=== PATIENT | female | born 1970 | race Caucasian/White ===

== ENCOUNTER 2019-06-16 16:56 | Emergency (ER) | payer BC, SELFPAY ==
[2019-06-16 17:07] VITALS: BP 146/99; PULSE 109; RESP 18; TEMP 36.8; O2SAT 98; BMI 20.7
--- NOTE | 2019-06-16 17:29 | XR_ITS ---
WS: [id number] PORTABLE CHEST HISTORY: Shortness of breath COMPARISON: 01/07/2018 Moderate pulmonary hyperinflation. No pneumonia. Normal vasculature. No pleural effusion or pneumotho rax. Cardiac size: Normal. Mediastinum/Aorta: Normal mediastinum. No osseous abnormality seen. XR/XR chest 1V portable [id number] IMPRESSION: Mild chronic emphysema. No acute cardiopulmonary disease.
--- NOTE | 2019-06-16 17:30 | ECG_ITS ---
Measurements Intervals [place] Rate: 104 P: 73 WY: 124 QRS: 85 QRSD: 81 T: 62 QT: 330 QTc: [address] DEPRESSION [0.05+ mV ST DEPRESSION] Compared to ECG 01/07/2018 16:22:37 ST (T wave) deviation now present Sinus rhythm no longer present Electronically Signed On 06-16-2019 19:29:01 YARN WEIGHER by Sabrina Savage M.D. [id number]
[2019-06-16 18:07] LABS: Troponin(5th) Baseline 6 ng/mL (0-10)
--- NOTE | 2019-06-16 19:30 | ECG_ITS ---
Measurements Intervals [place] Rate: 96 P: 73 WY: 124 QRS: 81 QRSD: 81 T: 64 QT: 336 QTc: 425 SINUS RHYTHM MINIMAL VOLTAGE CRITERIA FOR LVH, CONSIDER NORMAL VARIANT [MEETS CRITERIA IN ONE OF: R(aVL), S(V1), R(V5), R(V5/V6)+S(V1)] Compared to ECG 06/16/2019 17:19:57 Sinus tachycardia no longer present ST (T wave) deviation no longer present Electronically Signed On 06-17-2019 13:42:28 CABLE MAKER by Anabelle Barboza M.D. [id number]
[2019-06-16 19:54] LABS: Troponin 5 2HR Delta 0 ABS# (0-10)
--- NOTE | 2019-06-16 21:11 | ED_ITS ---
Entered by Annmarie Macias, acting as scribe for Nannette Wiley MD Jun 16, 2019 16:56 HPI - Chest Pain General: Chief Complaint: Chest Pain Stated Complaint: Chest Pains Time Seen by Provider: 06/16/19 21:11 Source: patient Mode of arrival: ambulatory Limitations: no limitations History of Present Illness: HPI narrative: 49 yo f came to the er for chest pain. Onset was today. Pt states that she does not fel good, she is dizzy, chest pain and has a cold since April of last year. Pt states that when she breaths in her chest and her abd hurt. complaint: chest pain Onset (ago): month(s) (today) Timing of current episode: constant and still present Prior episodes: No Onset: during rest Pain radiation: none Severity: mild Quality: aching Relieving factors: nothing Exacerbating factors: nothing Associated symptoms: Reports abdominal pain; Deny dyspnea, fever(s) or vomiting Review of Systems Const: Denies: fever or chills Eyes: Denies: change in vision ENMT: Reports: nasal discharge and nasal congestion Card: Reports: chest pain Resp: Reports: non-productive cough; Denies: shortness of breath GI: Reports: abdominal pain; Denies: vomiting : Denies: difficulty urinating Musc: Denies: back pain or joint pain Skin/Breast: Denies: rash Neuro: Reports: dizziness; Denies: headache Psych: Denies: depression Endo: Denies: excessive urination Akil/Lymph: Denies: easy bruising All/Imm: Denies: hives PFSH ED PFSH: Statuses (acute, chronic, etc) shown below reflect problem list status as previously entered and may not be historically accurate Social History Smoking and tobacco status: current every day smoker Physical Exam Const: COMMON NORMALS: no apparent distress and healthy appearing HENMT: COMMON NORMALS: normocephalic and external nose normal HEAD & SCALP: normocephalic NOSE: external nose normal and no nasal discharge (nasal dischage) Eye: COMMON NORMALS: PERRL PUPIL: Yes PERRL Neck/C-Spine: COMMON NORMALS: full ROM and no lymphadenopathy Chest: COMMONS NORMALS: inspection of chest normal Resp: COMMON NORMALS: normal respiratory effort and clear to auscultation bilaterally AUSCULTATION: clear to auscultation bilaterally Cardio: COMMON NORMALS: regular rate and regular rhythm RATE: regular rate RHYTHM: regular rhythm GI: COMMON NORMALS: soft to palpation PALPATION: Yes soft Extremity: COMMON NORMALS: normal to inspection, full ROM and normal capillary refill Psych: COMMON NORMALS: mental status grossly normal and cooperative Skin: COMMON NORMALS: no rashes or lesions noted GENERAL SKIN EXAM: no rashes or lesions noted Course Vital Signs: Vital signs: Vital Signs Temperature 98.2 F 06/16/19 17:07 Pulse Rate 76 06/16/19 23:12 Respiratory Rate 16 06/16/19 23:12 Blood Pressure 103/79 06/16/19 23:12 Pulse Oximetry 97 06/16/19 23:12 MDM - Chest Pain MDM Narrative: Medical decision making narrative: Patient presents here with chest pain that is atypical in nature. She has had a cough and congestion and pain sounds to be pleuritic in nature. D-dimer was negative and no signs of pulmonary embolism. Patient has no signs of cardiac cause. Patient given Decadron and antibiotics for her upper respiratory infection. She is stable for discharge and is to follow-up with her primary care doctor in 3 to 5 days and return if worsening. Lab Data: Labs: Lab Results 06/16/19 06/16/19 06/16/19 Range/Units 17:35 17:35 17:35 WBC 10.6 H (4.0-10.0) 10^3/ uL RBC 4.42 (4.1-5.3) 10^6/u L Hgb 13.3 (11.5-15.3) g/dL Hct 40.5 (37.0-47.0) % MCV 91.6 (81-99) fL MCH 30.1 (28.0-34.0) pg MCHC 32.8 (30.0-36.0) g/dL RDW 12.9 (12.1-15.1) % Plt Count 303 (130-400) 10^3/c mm MPV 9.9 (7.4-10.4) fL Neut % (Auto) 77.5 % Lymph % (Auto) 13.3 % Dillon % (Auto) 8.3 % Eos % (Auto) 0.2 % Baso % (Auto) 0.3 % Neut # (Auto) 8.2 H (1.8-7.7) 10^3/u L Lymph # (Auto) 1.4 (0.8-4.8) 10^3/u L Dillon # (Auto) 0.9 (0.2-0.9) 10^3/u L Eos # (Auto) 0.0 (0.0-0.8) 10^3/u L Baso # (Auto) 0.0 (0.0-0.1) 10^3/u L Nucleated RBC % (a uto) 0 % Nucleated RBCs # 0.0 /100WBC D-Dimer 0.47 (0-0.59) ug/mIFE U Troponin T Baselin e 6 (0-10) ng/mL Troponin T 120 Min sergio (0-10) ng/mL Delta Troponin T (0-10) ABS# 06/16/19 Range/Units 19:12 WBC (4.0-10.0) 10^3/ uL RBC (4.1-5.3) 10^6/u L Hgb (11.5-15.3) g/dL Hct (37.0-47.0) % MCV (81-99) fL MCH (28.0-34.0) pg MCHC (30.0-36.0) g/dL RDW (12.1-15.1) % Plt Count (130-400) 10^3/c mm MPV (7.4-10.4) fL Neut % (Auto) % Lymph % (Auto) % Dillon % (Auto) % Eos % (Auto) % Baso % (Auto) % Neut # (Auto) (1.8-7.7) 10^3/u L Lymph # (Auto) (0.8-4.8) 10^3/u L Dillon # (Auto) (0.2-0.9) 10^3/u L Eos # (Auto) (0.0-0.8) 10^3/u L Baso # (Auto) (0.0-0.1) 10^3/u L Nucleated RBC % (a uto) % Nucleated RBCs # /100WBC D-Dimer (0-0.59) ug/mIFE U Troponin T Baselin e (0-10) ng/mL Troponin T 120 Min sergio 6.00 (0-10) ng/mL Delta Troponin T 0 (0-10) ABS# Imaging Data^: CXR: Attestation: I personally reviewed and interpreted this imaging study as follows: My impression: no acute abnormality EKG Data^: EKG 1: Attestation: I personally reviewed and interpreted this EKG as follows: EKG interpretation date: 06/16/19 EKG interpretation time: 17:19 Interpretation: sinus tach hr [address] or t wave abnormaliies qrs 81 qtc 390 EKG 2: Attestation: I personally reviewed and interpreted this EKG as follows: EKG interpretation date: 06/16/19 EKG interpretation time: 19:13 Interpretation: nsr hr [address] or t wave abnormalities qrs 81 [id number] Discharge Plan Discharge Patient Disposition: Home, Self-Care Clinical Impression: Atypical chest pain, Acute upper respiratory infection Condition: Stable Prescriptions: New Keflex 500 mg capsule 500 mg PO Q6H 7 Days Qty: 28 RF: 0 EC-Naprosyn 500 mg tablet,delayed release (DR/EC) 500 mg PO BID PRN (Reason: pain) Qty: 20 RF: 0 Discharge Orders: Discharge Order (Routine); Ordered 06/16/19 Ordered By: Nannette Wiley Referrals: Lisy Prado MD [Primary Care Provider] - Discharge Diet: Advance as tolerated Discharge Activity: Resume usual activity Patient Instructions: Chest Pain (ED), Upper Respiratory Infection (ED) Discharge Date/Time: 06/16/19 23:12 Coding Level of Care Code ED Corporate Concierge for Chg Fwd Exam Problem Focused The documentation recorded by the Gilberto diallo Stephanie Lyn, accurately reflects the service I personally performed and the decisions made by Inez lynch Korby, MD Jun 16, 2019 16:56
[2019-06-16 21:22] LABS: Basophils % 0.3 %; Eosinophils % 0.2 %; Hematocrit 40.5 % (37.0-47.0); Hemoglobin 13.3 g/dL (11.5-15.3); Lymphocytes # 1.4 10^3/uL (0.8-4.8); Lymphocytes % 13.3 %; Mean Corpuscular HGB Conc 32.8 g/dL (30.0-36.0); Mean Corpuscular Hemoglobin 30.1 pg (28.0-34.0); Mean Corpuscular Volume 91.6 fL (81-99); Mean Platelet Volume 9.9 fL (7.4-10.4); Monocytes # 0.9 10^3/uL (0.2-0.9); Monocytes % 8.3 %; Neutrophils # 8.2 10^3/uL (1.8-7.7); Neutrophils % 77.5 %; Nucleated Red Blood Cells % 0 %; Platelet Count 303 10^3/cmm (130-400); Red Blood Count 4.42 10^6/uL (4.1-5.3); Red Cell Distribution Width 12.9 % (12.1-15.1); White Blood Count 10.6 10^3/uL (4.0-10.0)
[2019-06-16 21:33] LABS: D Dimer 0.47 ug/mIFEU (0-0.59)
[2019-06-16] MEDS: ketorolac 30 mg/mL INJ IVP (22:01)
[2019-06-16] MEDS: dexamethasone 10 mg/mL INJ IVP (23:05)
[2019-06-16 23:12] VITALS: BP 103/79; PULSE 76; RESP 16; O2SAT 97
[2019-06-16 23:14] LABS: Anion Gap 19.2 (5-19); Blood Urea Nitrogen 8 mg/dL (6-20); Calcium 9.8 mg/Dl (8.6-10.0); Carbon Dioxide 20 mmol/L (22-29); Chloride 102 mmol/L (98-107); Glomerular Filtration Rate 107.2 mL/min (90-130); Glucose 110 mg/dL (74-109); Potassium 4.2 mmol/L (3.5-5.1); Sodium 137 mmol/L (136-145)
== END 2019-06-16 23:12 | disposition home or self-care (01) ==
PROVIDERS: Family Medicine; Emergency Provider Emergency Medicine; Family Provider Family Medicine; PCP Family Medicine
DX: R07.9 Chest pain, unspecified (principal); R07.89 Other chest pain; J06.9 Acute upper respiratory infection, unspecified; F17.210 Nicotine dependence, cigarettes, uncomplicated
CPT/HCPCS: 36415; 71045; 80048; 84484; 85025; 85378; 93005; 96374; 96375; 99281; J1100; J1885

== ENCOUNTER 2019-07-11 08:58 | Emergency (ER) | payer BC, SELFPAY ==
[2019-07-11 09:11] VITALS: BP 143/92; PULSE 97; RESP 20; TEMP 36.9; O2SAT 100; BMI 21.6
--- NOTE | 2019-07-11 09:37 | ED_ITS ---
Entered by Trish Howard, acting as scribe for Louis Sandhu DO HPI - Fever General: Chief Complaint: Fever Stated Complaint: Sob,fever Time Seen by Provider: 07/11/19 09:37 Source: patient Mode of arrival: ambulatory Limitations: no limitations History of Present Illness: HPI Narrative: 49 yo female presents with flu like symptoms. Pt states that she has felt like this for about 4 days. Pt states that she has been sleeping more. Pt states that she has been dealing with an upper respiratory infection off and on since . Pt states that she has taken a few rounds of antibiotics. Pt states that she has had nose bleeds. Pt states that she has some burning and painful urination. MD elicited complaint: fever and malaise Onset (ago): day(s) (4 ) Exacerbating factors: nothing Relieving factors: nothing Associated symptoms: Reports abdominal pain (lower ), cough and dysuria; Deny chills, chest pain, confusion, extremity pain, headache(s), nasal congesti on or night sweats Treatments prior to arrival fever: none Review of Systems Const: Reports: fever and malaise; Denies: chills, body aches, fatigue or night sweats Eyes: Denies: change in vision or blurry vision ENMT: Denies: throat pain, oral sores/lesions, dental pain, nasal discharge or nasal congestion Card: Denies: chest pain, palpitations, irregular heart rhythm, edema, syncope, shortness of breath on exertion, shortness of breath when lying down or leg pain with exertion Resp: Reports: shortness of breath, non-productive cough and wheezing; Denies: productive cough GI: Reports: abdominal pain (lower ) : Reports: painful urination; Denies: urinary frequency or urinary urgency Musc: Denies: neck pain, back pain, extremity pain, extremity swelling, joint pain or joint swelling Skin/Breast: Denies: rash, itching or redness Neuro: Denies: headache, numbness in extremities, weakness in extremities, changes in sensation, lack of coordination, difficulty walking, frequent falls, dizziness, vertigo or confusion Psych: Denies: anxiety, depression, loss of interest, visual hallucinations, auditory hallucinations, suicidal ideation or homicidal ideation Endo: Denies: excessive urination, excessive thirst, tired all the time or cold intolerance Akil/Lymph: Denies: easy bruising, easy bleeding, petechiae, enlarged lymph nodes or tender lymph nodes PFSH ED PFSH: Statuses (acute, chronic, etc) shown below reflect problem list status as previously entered and may not be historically accurate Surgical History History of (Acute) Social History Smoking and tobacco status: heavy tobacco smoker Physical Exam Const: COMMON NORMALS: average body habitus, oriented x3 and alert GENERAL APPEARANCE: cooperative, comfortable, well kempt and well developed NUTRITIONAL APPEARANCE: not obese ORIENTATION/CONSCIOUSNESS: Yes awake, Yes oriented to person and Yes oriented to place HENMT: COMMON NORMALS: normocephalic, head/scalp atraumatic, EAC's normal, TM's normal bilaterally, external nose normal, moist oral mucous membranes and oropharynx normal HEAD & SCALP: normocephalic and atraumatic NOSE: external nose normal EXTERNAL AUDITORY CANAL: EAC's normal TYMPANIC MEMBRA NE: TM's normal bilaterally MOUTH: oral and palatal mucosa normal, lip normal and tongue normal THROAT: posterior oropharynx normal and tonsils normal Eye: COMMON NORMALS: PERRL, EOMs intact bilaterally, conjunctivae normal and no scleral icterus CONJUNCTIVA: Yes conjunctivae normal PUPIL: Yes PERRL Neck/C-Spine: COMMON NORMALS: full ROM, no lymphadenopathy, supple, no meningeal signs and thyroid normal THYROID: thyroid normal and asymmetrical Lymph: LYMPHATIC: no lymphadenopathy noted Resp: COMMON NORMALS: normal respiratory effort, no retractions, no use of accessory muscles and clear to auscultation bilaterally AUSCULTATION: clear to auscultation bilaterally Cardio: COMMON NORMALS: regular rate and regular rhythm RATE: regular rate RHYTHM: regular rhythm HEART SOUNDS: no murmurs GI: COMMON NORMALS: normal to inspection, nondistended, normoactive bowel sounds, soft to palpation and no hepatosplenomegaly PALPATION: Yes soft and Yes no hepatosplenomegaly : COMMON NORMALS: Yes no CVA tenderness BLADDER/KIDNEY EXAM: Yes no CVA tenderness Back/Pelvis: COMMON NORMALS: no CVA tenderness LUMBAR SPINE/LOWER BACK: Yes normal to inspection Extremity: COMMON NORMALS: no clubbing, cyanosis or edema, no calf tenderness and no pedal edema Neuro: COMMON NORMALS: oriented x3 SENSORIUM/ORIENTATION: Yes alert, Yes oriented to person and Yes oriented to place MENINGEAL SIGNS: Yes no meningeal signs Psych: APPEARANCE: Yes well kempt Skin: COMMON NORMALS: no rashes or lesions noted and skin turgor normal GENERAL SKIN EXAM: no rashes or lesions noted and turgor normal Course ED course: Patient had complained of some dysuria we are waiting on a urine. Her and who is not initially here arrived and evidently had become angry. I had come in and talk to the patient advised her it looks like she probably had evidence of COPD we are going to give her some medications for management of that and get her set up with a sixth grade teacher for further testing that could not be done here in the emergency room. After I left the room the patient's became belligerent was swearing at the staff and demanded to leave immediately. When I went back to the room to talk to them he was quite angry and took an aggressive posture in the room towards me. Security was called this made him more angry. Patient remained calm throughout. The then left the emergency room swearing loudly at me as he walked down the hallway. Offered the patient to wait until we get the urine sample back so she will have a bladder infection we could treat that. Patient's stated they had already seen Dr. Douglas and was told it was not COPD. She had not told me that initially but she had seen Dr. Pino previously. When we called Dr. Douglas's office they could not find record that she had ever been seen. Patient left AMA from the emergency room. I tried to discourage her to that we could do further testing to further evaluate her condition. We will have the director case still try to get into Dr. Douglas solely she will have the option of seeing him for further evaluation for this problem that she has had for several months now. Vital Signs: Vital signs: Vital Signs Temperature 98.4 F 07/11/19 09:11 Pulse Rate 97 07/11/19 09:11 Respiratory Rate 18 07/11/19 09:41 Blood Pressure 143/92 07/11/19 09:11 Pulse Oximetry 100 07/11/19 09:41 MDM - Fever Lab Data: Labs: Lab Results 07/11/19 07/11/19 07/11/19 Range/Units 09:15 09:45 09:51 WBC 6.5 (4.0-10.0) 10^3/ uL RBC 4.32 (4.1-5.3) 10^6/u L Hgb 13.2 (11.5-15.3) g/dL Hct 40.1 (37.0-47.0) % MCV 92.8 (81-99) fL MCH 30.6 (28.0-34.0) pg MCHC 32.9 (30.0-36.0) g/dL RDW 13.6 (12.1-15.1) % Plt Count 291 (130-400) 10^3/c mm MPV 9.3 (7.4-10.4) fL Neut % (Auto) 69.0 % Lymph % (Auto) 22.1 % Ashe % (Auto) 6.3 % Eos % (Auto) 1.7 % Baso % (Auto) 0.6 % Neut # (Auto) 4.5 (1.8-7.7) 10^3/u L Lymph # (Auto) 1.4 (0.8-4.8) 10^3/u L Ashe # (Auto) 0.4 (0.2-0.9) 10^3/u L Eos # (Auto) 0.1 (0.0-0.8) 10^3/u L Baso # (Auto) 0.0 (0.0-0.1) 10^3/u L Nucleated RBC % (a uto) 0 % Nucleated RBCs # 0.0 /100WBC Specimen Type Arterial Sample Site Radial, right ABG pH 7.41 (7.35-7.45) ABG pCO2 37.3 (35-45) mmHg ABG pO2 96.3 (80.0-100.0) mmH g ABG HCO3 23.8 (22-26) mmol/L ABG O2 Saturation 98.4 ABG Base Excess -0.5 (-2.0-2.0) mmol/ L Eben Test Pos A-a O2 Gradient 5.2 (5-10) mmHg Hematocrit 40.6 (37-47) % Hgb O2 Saturation 93.3 L (95-100) % Carboxyhemoglobin 4.5 (0.4-20.1) %THgb Methemoglobin 0.7 (0.4-1.5) % Total Hemoglobin 13.2 (12-16) g/dL Sodium 139.0 (131-143) mmol/L Potassium 3.9 (3.5-5.0) mmol/L Glucose 110.0 (70-115) mg/dL Ionized Calcium 1.2 (1.1-1.4) mmol/L O2 Delivery Device Room air FiO2 21.0 % Portfolio Mgr ID ed Chloride (98-107) mmol/L Carbon Dioxide (22-29) mmol/L Anion Gap (5-19) BUN (6-20) mg/dL Creatinine (0.5-0.9) mg/dL GFR Calculation (90-130) mL/min Calcium (8.5-10.5) mg/dL Total Bilirubin (0.15-1.2) mg/dL AST (0-32) U/L ALT (0-33) U/L Alkaline Phosphata se (35-105) IU/L Total Protein (6.6-8.7) g/dL Albumin (3.5-5.2) g/dL Globulin (1.3-4.6) g/dL Influenza Type A A g Negative (Negative) POC Influenza B Ag Negative (Negative) 07/11/19 Range/Units 09:51 WBC (4.0-10.0) 10^3/ uL RBC (4.1-5.3) 10^6/u L Hgb (11.5-15.3) g/dL Hct (37.0-47.0) % MCV (81-99) fL MCH (28.0-34.0) pg MCHC (30.0-36.0) g/dL RDW (12.1-15.1) % Plt Count (130-400) 10^3/c mm MPV (7.4-10.4) fL Neut % (Auto) % Lymph % (Auto) % Ashe % (Auto) % Eos % (Auto) % Baso % (Auto) % Neut # (Auto) (1.8-7.7) 10^3/u L Lymph # (Auto) (0.8-4.8) 10^3/u L Ashe # (Auto) (0.2-0.9) 10^3/u L Eos # (Auto) (0.0-0.8) 10^3/u L Baso # (Auto) (0.0-0.1) 10^3/u L Nucleated RBC % (a uto) % Nucleated RBCs # /100WBC Specimen Type Sample Site ABG pH (7.35-7.45) ABG pCO2 (35-45) mmHg ABG pO2 (80.0-100.0) mmH g ABG HCO3 (22-26) mmol/L ABG O2 Saturation ABG Base Excess (-2.0-2.0) mmol/ L Eben Test A-a O2 Gradient (5-10) mmHg Hematocrit (37-47) % Hgb O2 Saturation (95-100) % Carboxyhemoglobin (0.4-20.1) %THgb Methemoglobin (0.4-1.5) % Total Hemoglobin (12-16) g/dL Sodium 135 L (131-143) mmol/L Potassium 3.9 (3.5-5.0) mmol/L Glucose 109 (70-115) mg/dL Ionized Calcium (1.1-1.4) mmol/L O2 Delivery Device FiO2 % Portfolio Mgr ID Chloride 101 (98-107) mmol/L Carbon Dioxide 23 (22-29) mmol/L Anion Gap 14.9 (5-19) BUN 8 (6-20) mg/dL Creatinine 0.5 (0.5-0.9) mg/dL GFR Calculation 132.2 H (90-130) mL/min Calcium 9.0 (8.5-10.5) mg/dL Total Bilirubin 0.2 (0.15-1.2) mg/dL AST 14 (0-32) U/L ALT 8 (0-33) U/L Alkaline Phosphata se 57 (35-105) IU/L Total Protein 6.3 L (6.6-8.7) g/dL Albumin 3.8 (3.5-5.2) g/dL Globulin 2.5 (1.3-4.6) g/dL Influenza Type A A g (Negative) POC Influenza B Ag (Negative) Imaging Data^: CXR: Radiologist's impression: Patient: Belkis Oconnell Unit #: [id number] : 1970 Age/Sex: 49 / F ADM Date: 07/11/19 Loc: ER Room/Bed: Attending Dr: Ordering Provider/Ordering MD: Louis Sandhu DO Date of Service: 07/11/19 Procedure(s): XR chest 1V portable [id number] Accession Number(s): [id number] Report Number: [id number] WS: [id number] Portable AP upright chest, 07/11/2019 Clinical Data: cough Comparison: Portable chest, 06/16/2019 Findings: No nodules, masses or effusions are seen. The heart is normal. The pulmonary vascularity is not increased. No pneumonia or pneumothorax is seen. XR/XR chest 1V portable [id number] Impression: Negative chest. Dictated By: Veronika Hernandez MD Signed By: Veronika Hernandez MD Signed Date/Time: 07/11/19 1024 Discharge Plan Discharge Patient Disposition: Home, Self-Care Clinical Impression: COPD (chronic obstructive pulmonary disease) Condition: Stable Prescriptions: New Symbicort 80-4.5 mcg/actuation HFA aerosol inhaler 2 inh INHALATION BID Qty: 10.2 RF: 0 ProAir HFA 90 mcg/actuation HFA aerosol inhaler 2 inh INHALATION Q4H PRN (Reason: shortness of breath or wheezing) Qty: 18 RF: 0 No Action EC-Naprosyn 500 mg tablet,delayed release (DR/EC) 500 mg PO BID PRN (Reason: pain) Qty: 20 RF: 0 Discharge Orders: Discharge Order (Routine); Ordered 07/11/19 Ordered By: Louis Sandhu Referrals: Lisy Prado MD [Primary Care Provider] - Serene Douglas MD [Physician] - Discharge Diet: Usual diet Discharge Activity: Increase activity as tolerated Activity Restrictions/Additional Instructions: Case management will call with referral to Dr. Douglas for management of COPD. Coding Level of Care Code ED Maintenance Planner for Chg Fwd Exam Problem Focused The documentation recorded by the Lee diallo Kialy, accurately reflects the service I personally performed and the decisions made by Phoebe lynch Curtis L, DO Jul 11, 2019 08:58
--- NOTE | 2019-07-11 09:37 | ED_ITS ---
HPI - Fever General: Chief Complaint: Fever Stated Complaint: Sob,fever Time Seen by Provider: 07/11/19 09:37 Source: patient Mode of arrival: ambulatory Limitations: no limitations Review of Systems General: Reports: 10 or more systems reviewed and unremarkable except in HPI and below PFSH ED PFSH: Statuses (acute, chronic, etc) shown below reflect problem list status as previously entered and may not be historically accurate Social History Smoking and tobacco status: current every day smoker Physical Exam Const: COMMON NORMALS: no apparent distress and oriented x3 GENERAL APPEARANCE: cooperative HENMT: COMMON NORMALS: normocephalic, external ears normal, EAC's normal, TM's normal bilaterally and external nose normal HEAD & SCALP: normal to inspection and normocephalic FACE & SINUS: normal facial exam NOSE: external nose normal GENERAL EAR: hearing not grossly impaired EXTERNAL EAR: Yes external ears normal EXTERNAL AUDITORY CANAL: EAC's normal TYMPANIC MEMBRANE: TM's normal bilaterally MOUTH: oral and palatal mucosa normal THROAT: posterior oropharynx normal Eye: COMMON NORMALS: PERRL and EOMs intact bilaterally PUPIL: Yes PERRL Neck/C-Spine: COMMON NORMALS: full ROM and no lymphadenopathy Lymph: LYMPHATIC: no lymphedema noted Chest: COMMONS NORMALS: inspection of chest normal and palpation of chest normal Resp: COMMON NORMALS: normal respiratory effort and clear to auscultation bilaterally AUSCULTATION: clear to auscultation bilaterally Cardio: COMMON NORMALS: regular rate and regular rhythm RATE: regular rate RHYTHM: regular rhythm GI: COMMON NORMALS: normal to inspection, nondistended, normoactive bowel sounds and non-tender : COMMON NORMALS: Yes no CVA tenderness BLADDER/KIDNEY EXAM: Yes no CVA tenderness Back/Pelvis: COMMON NORMALS: no CVA tenderness and thoracic and lumbar spine normal to inspection Extremity: COMMON NORMALS: normal to inspection GENERAL: No edema Neuro: COMMON NORMALS: oriented x3, moves all extremities and no focal motor deficits Psych: COMMON NORMALS: mental status grossly normal and cooperative Skin: COMMON NORMALS: no rashes or lesions noted GENERAL SKIN EXAM: no rashes or lesions noted Course Vital Signs: Vital signs: Vital Signs Temperature 98.4 F 07/11/19 09:11 Pulse Rate 97 07/11/19 09:11 Respiratory Rate 20 H 07/11/19 09:11 Blood Pressure 143/92 07/11/19 09:11 Pulse Oximetry 100 07/11/19 09:11 Discharge Plan Discharge Prescriptions: No Action EC-Naprosyn 500 mg tablet,delayed release (DR/EC) 500 mg PO BID PRN (Reason: pain) Qty: 20 RF: 0 Coding Level of Care Code ED R&D Lab Technician for Ignacio Smith
[2019-07-11 09:41] VITALS: RESP 18; O2SAT 100
--- NOTE | 2019-07-11 09:41 | XR_ITS ---
WS: [id number] Portable AP upright chest, 07/11/2019 Clinical Data: cough Comparison: Portable chest, 06/16/2019 Findings: No nodules, masses or effusions are seen. The heart is normal. The pulmonary vascularity is not increased. No pneumonia or pneumothorax is seen. XR/XR chest 1V portable [id number] Impression: Negative chest.
[2019-07-11 09:56] LABS: ABG PCO2 37.3 mmHg (35-45); ABG PH Result 7.41 (7.35-7.45); Alveolar-Arterial Oxygen Gradi 5.2 mmHg (5-10); Arterial Blood Gas Hematocrit 40.6 % (37-47); Base Excess ABG -0.5 mmol/L (-2.0-2.0); Blood Gas Allen Test Pos; Blood Gas Sample Site Radial, right; Blood Gas Sample Type Arterial; Carboxyhemoglobin 4.5 %THgb (0.4-20.1); HCO3 ABG 23.8 mmol/L (22-26); HGB O2 Sat 93.3 % (95-100); Ionized Calcium Level - ABG 1.2 mmol/L (1.1-1.4); Methemoglobin 0.7 % (0.4-1.5); Oxygen Device ROOM AIR; Oxygen Saturation ABG 98.4; PO2 ABG 96.3 mmHg (80.0-100.0); Potassium Level - ABG 3.9 mmol/L (3.5-5.0); Total Hemoglobin 13.2 g/dL (12-16)
[2019-07-11] MEDS: sodium chloride 0.9% 1,000 ML 999 ML IV (10:04)
[2019-07-11 10:06] LABS: Basophils % 0.6 %; Eosinophils # 0.1 10^3/uL (0.0-0.8); Eosinophils % 1.7 %; Hematocrit 40.1 % (37.0-47.0); Hemoglobin 13.2 g/dL (11.5-15.3); Lymphocytes # 1.4 10^3/uL (0.8-4.8); Lymphocytes % 22.1 %; Mean Corpuscular HGB Conc 32.9 g/dL (30.0-36.0); Mean Corpuscular Hemoglobin 30.6 pg (28.0-34.0); Mean Corpuscular Volume 92.8 fL (81-99); Mean Platelet Volume 9.3 fL (7.4-10.4); Monocytes # 0.4 10^3/uL (0.2-0.9); Monocytes % 6.3 %; Neutrophils # 4.5 10^3/uL (1.8-7.7); Nucleated Red Blood Cells % 0 %; Platelet Count 291 10^3/cmm (130-400); Red Blood Count 4.32 10^6/uL (4.1-5.3); Red Cell Distribution Width 13.6 % (12.1-15.1); White Blood Count 6.5 10^3/uL (4.0-10.0)
[2019-07-11 10:15] LABS: Influenza A by IFA Negative (Negative); Influenza B by IFA Negative (Negative)
[2019-07-11 10:28] LABS: Alanine Aminotransferase 8 U/L (0-33); Albumin Level 3.8 g/dL (3.5-5.2); Alkaline Phosphatase 57 IU/L (35-105); Anion Gap 14.9 (5-19); Aspartate Amino Transferase 14 U/L (0-32); Blood Urea Nitrogen 8 mg/dL (6-20); Carbon Dioxide 23 mmol/L (22-29); Chloride 101 mmol/L (98-107); Globulin 2.5 g/dL (1.3-4.6); Glomerular Filtration Rate 132.2 mL/min (90-130); Glucose 109 mg/dL (65-115); Potassium 3.9 mmol/L (3.5-5.1); Sodium 135 mmol/L (136-145); Total Bilirubin 0.2 mg/dL (0.15-1.2); Total Protein 6.3 g/dL (6.6-8.7)
[2019-07-11 12:07] LABS: Add Urine Microscopic? NO
[2019-07-11 12:14] LABS: Urine Appearance Clear (CLEAR); Urine Color Yellow (Yellow); pH Urine 9 (5-7)
[2019-07-11 12:15] LABS: Bilirubin Urine Neg (NEGATIVE); Blood Urine Neg (Negative); Glucose Urine UA Norm (Normal); Ketones Urine Negative (Negative); Leukocyte Esterase Urine Negative (Negative); Nitrate Urine Negative (Negative); Protein Urine Neg (Negative); Sulfosalicylic Acid Urine Negative; Urobilinogen Urine Norm (Negative)
--- NOTE | 2019-07-11 13:09 | DCPLANNER ---
manager system was asked to schedule a follow up appointment for patient at [facility] with Dr. Douglas. manager system spoke with Anamaria at [facility], a follow up appointment was scheduled for Monday, August 05, 2019 at 8:[address] Douglas. Clinic will call patient with appointment information.
--- NOTE | 2019-08-14 11:48 | DCPLANNER ---
Appointment scheduled for 08.05.19 was rescheduled for August at 11:[address] Douglas.
--- NOTE | 2019-08-29 09:20 | DCPLANNER ---
Appointment with [facility] was rescheduled again for a later date.
== END 2019-07-11 11:33 | disposition home or self-care (01) ==
PROVIDERS: Nurse Practitioner Family; Emergency Provider Family Medicine; Family Provider Family Medicine; PCP Family Medicine
DX: J44.9 Chronic obstructive pulmonary disease, unspecified (principal); F17.210 Nicotine dependence, cigarettes, uncomplicated
CPT/HCPCS: 36600; 71045; 80051; 80053; 81003; 82810; 83986; 85025; 87804; 96360; 99282; 99283; A9270; J7030

== ENCOUNTER → 2019-10-14 10:31 | Outpatient (BNVA) | payer BC, SELFPAY | PROVIDERS: Family Provider Family Medicine; PCP Family Medicine; Referring Provider Nurse Practitioner Family; Visit Provider Nurse Practitioner Family | DX: S59.901A Unspecified injury of right elbow, initial encounter (principal); X58.XXXA Exposure to other specified factors, initial encounter | CPT/HCPCS: 73080 ==

== ENCOUNTER 2019-10-31 16:59 | Emergency (ER) | payer BC, SELFPAY ==
--- NOTE | 2019-10-31 17:02 | XRR_ITS ---
PROCEDURE INFORMATION: Exam: XR Right Knee Exam date and time: 10/31/2019 5:02 PM Age: 49 years old Clinical indication: Knee; Right; Patient HX: Pain after twisting injury 5 days ago TECHNIQUE: Imaging protocol: XR Right knee. HISTORY: Knee; Right; Patient HX: Pain after twisting injury 5 days ago COMPARISON: None available FINDINGS: No acute fracture or dislocation is demonstrated. There is small patellar enthesophyte anterosuperiorly. XR/XR knee RT 3V* [id number] IMPRESSION: No acute osseous abnormality is demonstrated.
== END 2019-10-31 19:06 | disposition left against medical advice (07) ==
LOC: ER 02-06 11:55
PROVIDERS: Emergency Provider Nurse Practitioner Family; PCP Family Medicine
DX: Z53.21 Procedure and treatment not carried out due to patient leaving prior to being seen by health care provider (principal)
CPT/HCPCS: 73562; 99281

== ENCOUNTER 2019-11-18 14:52 | Outpatient (CLI) | payer BC, SELFPAY ==
--- NOTE | 2019-11-18 | MR_ITS ---
WS: [id number] MRI RIGHT KNEE NONCONTRAST TECHNIQUE: Axial PD, coronal PD fat sat, coronal PD, sagittal PD, and sagittal PD fat-sat images obta ined. CLINICAL INFORMATION: RIGHT KNEE COMPARISON: None. FINDINGS: Distal quadriceps and patella tendons are intact. Hypertrophic patella. Normal ACL. Normal posterior cruciate ligament. Small amount of prepatellar soft tissue edema. Hypertrophic patella. Normal latera l meniscus. Chronic intrasubstance signal abnormality in the medial meniscus. No acute appearing meni scal tears. Mild chondromalacia patella worse involving the lateral patella facet. No subchondral edema. Normal m edial and lateral collateral ligaments. Normal popliteal fossa. Mild joint space narrowing involving the medial and lateral joint compartmnts. No subchondral edema. MR/MR knee RT wo con* [id number] IMPRESSION: 1. Anterior and posterior cruciate ligaments are intact. 2. No acute appearing meniscal tears. 3. Hypertrophic patella with chondromalacia patella. This is worse in the late ral facet. 4. Small amount of prepatellar soft tissue edema. 5. Medial and lateral collateral ligaments are intact. 6. No other significant findings.
== END 2019-11-18 14:53 | disposition home or self-care (01) ==
LOC: RADSHAW 14:56
PROVIDERS: PCP Family Medicine; Visit Provider Nurse Practitioner Family
DX: M25.461 Effusion, right knee (principal); M25.561 Pain in right knee; W19.XXXA Unspecified fall, initial encounter; R60.9 Edema, unspecified; M22.41 Chondromalacia patellae, right knee
CPT/HCPCS: 73721

== ENCOUNTER 2020-11-03 11:20 | Emergency (ER) | payer BC, SELFPAY ==
[2020-11-03 11:36] VITALS: PULSE 80; RESP 18; TEMP 36.8; O2SAT 99; BMI 20.6
--- NOTE | 2020-11-03 11:53 | CT_ITS ---
WS: [id number] CT HEAD TECHNIQUE: Noncontrast CT of the head obtained from the skullbase to the vertex. CLINICAL INFORMATION: vision changes COMPARISON: None. DLP: 842.[address] scans at [facility] use at least one of these dose optimization techniques: automat ed exposure control; mA and/or kV adjustment per patient size (includes targeted exams where dose is matched to clinical indication); or iterative reconstruction. FINDINGS: No evidence of intracranial hemorrhage or mass effect. Ventricular system and basal cisterns are leggett nt. No extra-axial fluid collections. No evidence of mass or mass effect. Normal grajeda-white different iation. Paranasal sinuses and mastoid air cells are well aerated. . 7 mm nodule likely sebaceous cyst right f rontal scalp near the vertex. Otherwise normal soft tissues. CT/CT head wo con* [id number] IMPRESSION: 1. No evidence of intracranial hemorrhage or mass effect. 2. Normal grajeda-white differentiation. 3. No acute intracranial findings.
--- NOTE | 2020-11-03 11:53 | ECG_ITS ---
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 Measurements Intervals [place] Rate: 70 P: 77 TN: 121 QRS: 82 QRSD: 78 T: 66 QT: 374 QTc: 404 Interpretive Statements SINUS RHYTHM MODERATE T-WAVE ABNORMALITY, CONSIDER ANTERIOR ISCHEMIA [-0.1+ mV T WAVE IN V3/V4] Compared to ECG 03/11/2017 10:18:48 T-wave abnormality now present Possible ischemia now present Electronically Signed On 11-04-2020 18:46:33 CDT by Shai Pacheco M.D. [id number]
--- NOTE | 2020-11-03 12:00 | W.ED.AMS ---
HPI - Altered Mental Status General: Chief Complaint: Altered Mental Status Stated Complaint: AMS, ALMOST PASSED OUT? Time Seen by Provider: 11/03/20 11:54 PFSH ED PFSH: Surgical History History of Family History Father Cancer Grandfather Cancer Lung disease Social History (Updated 11/03/20 @ 10:39 by Nomi Araujo LPN) Smoking and tobacco status: current every day smoker cigarettes Packs smoked per day: 1 Years cigarettes smoked: 35 Quit status (tobacco): not considering quitting Second hand smoke exposure: No Alcohol intake: never Desire information about alcohol rehabilitation?: No Desire information about substance/drug rehabilitation?: No Lives independently: Yes Household members: spouse Marital status: Current occupational status: employed History of recent travel: No Current gender identity: Female Female Reproductive History: Date of last menstrual period: 11/02/20 Course Vital Signs: Vital signs: Vital Signs Temperature 98.2 F 11/03/20 11:36 Pulse Rate 80 11/03/20 11:36 Respiratory Rate 18 11/03/20 11:36 Pulse Oximetry 99 11/03/20 11:36 Discharge Plan Discharge Prescriptions: No Action albuterol sulfate [ProAir HFA] 90 mcg/actuation HFA aerosol inhaler 2 puff INHALATION 6XD PRN (Reason: shortness of breath or wheezing) 90 Days Qty: 18 RF: 3 fluconazole [Diflucan] 150 mg tablet 150 mg PO ONCE Qty: 2 RF: 0 Coding Level of Care Code ED Porcelain Finish Sprayer for Arturog Sarah
--- NOTE | 2020-11-03 12:03 | W.ED.HA ---
HPI - Headache General: Chief Complaint: Altered Mental Status Stated Complaint: AMS, ALMOST PASSED OUT? Time Seen by Provider: 11/03/20 11:54 History of Present Illness: HPI Narrative: The patient is a 50-year-old female with past medical history headaches more days than not who comes to the ER complaining of 6 days of headache symptoms. Her headache was severe which started but it is not atypical for her to have headaches. What is atypical are the symptoms that came along with it she began to have slurred speech, blurry vision, confusion and feeling like she was behind on that . She also had an episode of tunnel vision Sunday. She says she continued to have the headache and not felt well the past couple of days sleeping 8 to 12 hours a day and using marijuana to help her symptoms. Today she says she did not feel right this morning and her took her to urgent care who recommended she come to the ER for evaluation for possible seizures. Denies neck pain, stiffness, fevers. Symptoms in the ER are just her headache. The neurologic symptoms have resolved prior to arrival but she went to the urgent care center this morning who told her to come to get checked out for seizures. MD elicited complaint: migraine Onset (ago): day(s) (6) Onset description: suddenly Location: occipital Severity: severe Quality & Timing: throbbing Exacerbating factors: none Relieving factors: rest and sleep Context: occurred at rest Associated symptoms: Deny chest pain, confusion, cough, eye pain, loss of vision, nausea, neck stiffness, numbness, photophobia, pre-syncope, rash, seizures, short of breath or vomiting Review of Systems General: Reports: 10 or more systems reviewed and unremarkable except in HPI and below Const: Denies: fatigue Eyes: Denies: change in vision, blurry vision or eye redness ENMT: Denies: throat pain, swelling of lips/tongue, ear or mastoid pain or nasal congestion Card: Denies: chest pain or pre-syncope Resp: Denies: dyspnea, productive cough or non-productive cough GI: Denies: nausea or vomiting : Denies: flank pain, difficulty voiding, urinary frequency or urinary urgency Musc: Denies: neck pain, back pain, extremity pain, joint pain, joint redness, limited range of motion or muscle weakness Skin/Breast: Denies: rash Neuro: Reports: headache(s); Denies: numbness in extremities, lack of coordination or confusion Psych: Denies: anxiety or depression Endo: Denies: polyuria All/Imm: Denies: urticaria, throat swelling or tongue swelling PFSH ED PFSH: Surgical History History of Family History Father Cancer Grandfather Cancer Lung disease Social History (Updated 11/03/20 @ 10:39 by Nomi Araujo LPN) Smoking and tobacco status: current every day smoker cigarettes Packs smoked per day: 1 Years cigarettes smoked: 35 Quit status (tobacco): not considering quitting Second hand smoke exposure: No Alcohol intake: never Desire information about alcohol rehabilitation?: No Desire information about substance/drug rehabilitation?: No Lives independently: Yes Household members: spouse Marital status: Current occupational status: employed History of recent travel: No Current gender identity: Female Female Reproductive History: Date of last menstrual period: 11/02/20 Physical Exam Const: COMMON NORMALS: no acute distress, average body habitus, patient oriented x3, no limitations, healthy appearing, alert and well nourished GENERAL APPEARANCE: cooperative, comfortable, well kempt and well developed ORIENTATION/CONSCIOUSNESS: Yes awake, Yes oriented to person, Yes oriented to place and Yes oriented to time HENMT: COMMON NORMALS: normocephalic, external ears normal and Normal external nose present HEAD & SCALP: normal to inspection and normocephalic NOSE: Normal external nose present EXTERNAL EAR: Yes external ears normal MOUTH: Normal oral and palatal mucosa present THROAT: posterior oropharynx normal Eye: COMMON NORMALS: Equal, round and reactive pupils present and EOMs intact bilaterally GENERAL EYE: appearance normal, both eyes and all related structures PUPIL: Yes Equal, round and reactive pupils present DIRECT OPHTHALMOSCOPY: No photophobia Neck/C-Spine: COMMON NORMALS: full ROM, no lymphadenopathy, no meningeal signs and no JVD GENERAL: Yes normal visual inspection Lymph: LYMPHATIC: no lymphadenopathy noted Chest: COMMONS NORMALS: normal inspection of the chest and normal palpation of entire chest wall Resp: COMMON NORMALS: normal respiratory effort, No retractions, No use of accessory muscles, clear to auscultation bilaterally and percussion normal EFFORT & INSPECTION: Yes able to speak in complete sentences AUSCULTATION: clear to auscultation bilaterally PERCUSSION: percussion normal Cardio: COMMON NORMALS: no JVD, regular rate, regular rhythm, S1 normal heart sound present, S2 normal heart sound present and Peripheral pulses 2+ throughout RATE: regular rate RHYTHM: regular rhythm HEART SOUNDS: S1 normal heart sound present and S2 normal heart sound present PERIPHERAL PULSES: Peripheral pulses 2+ throughout GI: COMMON NORMALS: Normal to inspection, nondistended, normoactive bowel sounds present, Soft to palpation, non-tender and no masses INSPECTION: Yes normal to inspection PALPATION: Yes Soft to palpation : COMMON NORMALS: Yes no CVA tenderness BLADDER/KIDNEY EXAM: Yes no CVA tenderness Back/Pelvis: COMMON NORMALS: no CVA tenderness, thoracic and lumbar spine normal to inspection, no thoracic nor lumbar tenderness and thoraco-lumbar ROM normal Extremity: COMMON NORMALS: normal to inspection, full ROM, capillary refill normal, no joint enlargement and no pedal edema GENERAL: Yes normal exam except as noted Neuro: COMMON NORMALS: patient oriented x3, CN's II-XII intact bilaterally, moves all extremities, no focal motor deficits, no sensory deficits noted and gait normal SENSORIUM/ORIENTATION: Yes alert, Yes oriented to person, Yes oriented to place and Yes oriented to time MENINGEAL SIGNS: Yes no meningeal signs Psych: COMMON NORMALS: mental status grossly normal, Normal thought process present, cooperative, normal affect and speech normal APPEARANCE: Yes well kempt ATTITUDE: Yes calm SPEECH: Yes normal speech THOUGHT PROCESS: Normal thought process present Skin: COMMON NORMALS: no rashes or lesions noted GENERAL SKIN EXAM: no rashes or lesions noted Course Vital Signs: Vital signs: Vital Signs Temperature 98.2 F 11/03/20 11:36 Pulse Rate 80 11/03/20 11:36 Respiratory Rate 18 11/03/20 11:36 Pulse Oximetry 99 11/03/20 11:36 MDM - Headache MDM Narrative: Medical decision making narrative: The patient is likely having neurologic symptoms related to her chronic migraines. The good news is the neurologic symptoms has mostly resolved prior to her arrival. She was given Tylenol, Toradol, Phenergan and her headache did improve significantly in the ED. I recommended she take those medications at home to help with her headaches in the future as well. Discussed with Dr. Harper and will follow up with her in the clinic. Placed case management referral to help her get this done. ER with worsening symptoms at any time Lab Data: Labs: Lab Results 11/03/20 11/03/20 11/03/20 Range/Units 12:25 12:25 12:25 WBC 4.9 (4.0-10.0) 10^3/ uL RBC 4.45 (4.1-5.3) 10^6/u L Hgb 13.8 (11.5-15.3) g/dL Hct 41.7 (37.0-47.0) % MCV 93.7 (81-99) fL MCH 31.0 (28.0-34.0) pg MCHC 33.1 (30.0-36.0) g/dL RDW 13.6 (12.1-15.1) % Plt Count 299 (130-400) 10^3/c mm MPV 9.3 (7.4-10.4) fL Neut % (Auto) 59.3 % Lymph % (Auto) 30.7 % [place] % (Auto) 7.4 % Eos % (Auto) 1.6 % Baso % (Auto) 0.8 % Neut # (Auto) 2.88 (1.8-7.7) 10^3/u L Lymph # (Auto) 1.5 (0.8-4.8) 10^3/u L [place] # (Auto) 0.4 (0.2-0.9) 10^3/u L Eos # (Auto) 0.1 (0.0-0.8) 10^3/u L Baso # (Auto) 0.0 (0.0-0.1) 10^3/u L Nucleated RBC % (a uto) 0 % Nucleated RBCs # 0.0 /100WBC Sodium 138 (136-145) mmol/L Potassium 4.3 (3.5-5.1) mmol/L Chloride 105 (98-107) mmol/L Carbon Dioxide 24 (22-29) mmol/L Anion Gap 13.3 (5-19) BUN 8 (6-20) mg/dL Creatinine 0.4 L (0.5-0.9) mg/dL GFR Calculation 170.4 H (90-130) mL/min Glucose 103 (65-115) mg/dL Calculated Osmolal ity 285 (285-295) mOsm/k g Calcium 8.4 L (8.5-10.5) mg/dL HCG, Qual Negative (Negative) Discharge Plan Discharge Patient Disposition: Home Clinical Impression: Migraine Condition: Stable Prescriptions: New promethazine 25 mg tablet 25 mg PO TID PRN (Reason: nausea and vomiting) Qty: 14 RF: 0 No Action ibuprofen 200 mg Tablet 600 mg PO PRN RF: 0 Tylenol PM Extra Strength 25-500 mg Tablet 2 tab PO PRN RF: 0 Discharge Orders: Discharge ED (Routine); Ordered 11/03/20 Ordered By: Sanford Rodriguez Discharge Diet: Advance as tolerated Discharge Activity: Resume usual activity Patient Instructions: Migraine Headache (ED), Opioid Safety Activity Restrictions/Additional Instructions: You are likely having a migraine with some neurologic symptoms which have improved before you came. We have given you some medications which have also helped with your headache. I discussed with Dr. Harper who recommended follow-up in her clinic and return to the ER with any worsening of your symptoms or return of the neurologic symptoms. CAT scan of your head has been normal and blood work is also normal. Please take Tylenol, ibuprofen for your headaches and you may take Phenergan to help with nausea and it also helps with headache. Return to the ER with worrisome or worsening symptoms at any time. I have placed a case management referral to help you get an appointment with a neurologist. They should be calling you tomorrow to help with an appointment. Coding Level of Care Code ED Staff Counselor for Ignacio Fwd Exam Problem Focused
[2020-11-03 12:42] LABS: Basophils % 0.8 %; Eosinophils # 0.1 10^3/uL (0.0-0.8); Eosinophils % 1.6 %; Hematocrit 41.7 % (37.0-47.0); Hemoglobin 13.8 g/dL (11.5-15.3); Lymphocytes # 1.5 10^3/uL (0.8-4.8); Lymphocytes % 30.7 %; Mean Corpuscular HGB Conc 33.1 g/dL (30.0-36.0); Mean Corpuscular Volume 93.7 fL (81-99); Mean Platelet Volume 9.3 fL (7.4-10.4); Monocytes # 0.4 10^3/uL (0.2-0.9); Monocytes % 7.4 %; Neutrophils # 2.88 10^3/uL (1.8-7.7); Neutrophils % 59.3 %; Nucleated Red Blood Cells % 0 %; Platelet Count 299 10^3/cmm (130-400); Red Blood Count 4.45 10^6/uL (4.1-5.3); Red Cell Distribution Width 13.6 % (12.1-15.1); White Blood Count 4.9 10^3/uL (4.0-10.0)
[2020-11-03] MEDS: acetaminophen 325 mg Tablet 650 MG PO (12:46)
[2020-11-03] MEDS: promethazine 25 mg/mL SDV 1 mL IM (12:47)
[2020-11-03] MEDS: sodium chloride 0.9% 1,000 ML 999 ML IV (12:47)
[2020-11-03] MEDS: ketorolac 30 mg/mL INJ 15 MG IVP (12:48)
[2020-11-03 12:52] LABS: HCG, Serum Qual Negative (Negative)
[2020-11-03 13:02] LABS: Anion Gap 13.3 (5-19); Blood Urea Nitrogen 8 mg/dL (6-20); Calcium 8.4 mg/dL (8.5-10.5); Carbon Dioxide 24 mmol/L (22-29); Chloride 105 mmol/L (98-107); Glomerular Filtration Rate 170.4 mL/min (90-130); Glucose 103 mg/dL (65-115); Osmolality Calculated 285 mOsm/kg (285-295); Potassium 4.3 mmol/L (3.5-5.1); Sodium 138 mmol/L (136-145)
--- NOTE | 2020-11-04 11:58 | DCPLANNER ---
corporate legal manager had message to schedule a follow up appointment for patient with Dr. Harper. corporate legal manager emailed patients information to Loni at Dr. Clark office. Patients information will be printed and reviewed. Clinic will call patient with appointment information.
--- NOTE | 2020-11-11 07:39 | DCPLANNER ---
Patient has a follow up appointment scheduled for , December 09, 2020 at 11:[address] Harper. Clinic will call patient with appointment information.
--- NOTE | 2021-01-21 12:21 | DCPLANNER ---
Patient had a follow up appointment scheduled for 12.09.[address] Harper - patient did attend appointment.
== END 2020-11-03 13:59 | disposition home or self-care (01) ==
PROVIDERS: Nurse Practitioner Family; Emergency Provider Family Medicine
DX: G43.909 Migraine, unspecified, not intractable, without status migrainosus (principal); F17.210 Nicotine dependence, cigarettes, uncomplicated
CPT/HCPCS: 70450; 80048; 81000; 84703; 85025; 93005; 96361; 96372; 96374; 99283; J1885; J2550; J7030

== ENCOUNTER → 2020-12-09 10:50 | Outpatient (BNVA) | payer BC, SELFPAY | PROVIDERS: Referring Provider Family Medicine; Visit Provider Specialist | DX: G43.711 Chronic migraine without aura, intractable, with status migrainosus (principal); R56.9 Unspecified convulsions; Z71.89 Other specified counseling; F17.210 Nicotine dependence, cigarettes, uncomplicated | CPT/HCPCS: 99205 ==

== ENCOUNTER → 2020-12-15 12:50 | Outpatient (BNVA) | payer BC, SELFPAY | PROVIDERS: Visit Provider Specialist | DX: R56.9 Unspecified convulsions (principal); F17.210 Nicotine dependence, cigarettes, uncomplicated | CPT/HCPCS: 95816 ==

== ENCOUNTER → 2020-12-28 08:59 | Outpatient (BNVA) | payer BC, SELFPAY | PROVIDERS: Visit Provider Specialist | DX: G43.711 Chronic migraine without aura, intractable, with status migrainosus (principal); G43.709 Chronic migraine without aura, not intractable, without status migrainosus; Z71.89 Other specified counseling | CPT/HCPCS: 96372 ==

== ENCOUNTER → 2021-01-20 12:09 | Outpatient (BNVA) | payer BC, SELFPAY | PROVIDERS: Visit Provider Specialist | DX: G43.709 Chronic migraine without aura, not intractable, without status migrainosus (principal); R56.9 Unspecified convulsions; F32.9 Major depressive disorder, single episode, unspecified; F17.210 Nicotine dependence, cigarettes, uncomplicated | CPT/HCPCS: 99214 ==

== ENCOUNTER → 2021-05-02 09:49 | Outpatient (BNVA) | payer BC, SELFPAY | PROVIDERS: Visit Provider Specialist | DX: G43.711 Chronic migraine without aura, intractable, with status migrainosus (principal); F17.200 Nicotine dependence, unspecified, uncomplicated | CPT/HCPCS: 99213 ==

== ENCOUNTER 2021-11-03 10:02 | Emergency (ER) | payer BC, SELFPAY ==
[2021-11-03 10:10] VITALS: BP 145/88; PULSE 96; RESP 16; TEMP 36.6; O2SAT 96; BMI 20.6
--- NOTE | 2021-11-03 10:18 | XRR_ITS ---
PROCEDURE INFORMATION: Exam: XR Right Hand Exam date and time: 11/03/2021 10:35 AM Age: 51 years old Clinical indication: Injury or trauma; Fall; Blunt trauma (contusions or hematomas); Hand; Right TECHNIQUE: Imaging protocol: XR Right hand. Views: 3 or more views. COMPARISON: CR XR elbow RT min 3V* [id number] 10/14/2019 10:45 AM FINDINGS: Bones/joints: Normal. Soft tissues: Normal. XR/XR hand RT min 3V* [id number] IMPRESSION: No acute findings.
--- NOTE | 2021-11-03 10:18 | W.ED.UPPEXIN ---
HPI - Extremity Injury (Upper) General: Chief Complaint: Extremity Injury, Upper Stated Complaint: fall- right hand pain Time Seen by Provider: 11/03/21 10:05 Source: patient Mode of arrival: ambulatory Limitations: no limitations History of Present Illness: Patient is a nice 51-year-old female presents to ED today for evaluation of a right hand injury. Patient tells me yesterday she accidentally fell and landed onto her right hand. Patient tells me she falls frequently and is currently being worked up and seen by Dr. Harper regarding this. Patient states she is only here for evaluation of the right hand injury. She has no other injuries or complaints at this time. MD complaint: injury to: right and hand Onset (ago): day(s) (yesterday) Other injuries: none Place: home Relieving factors: immobilization Exacerbating factors: movement of extremity Context: fall and direct blow Review of Systems Musc: Reports: extremity pain (R hand); Denies: extremity swelling, joint pain, joint swelling, joint redness, joint warmth or limited range of motion Neuro: Denies: numbness in extremities or sensory changes PFSH ED PFSH: Surgical History History of Family History Father Cancer Grandfather Cancer Lung disease Social History Quit status (tobacco): not considering quitting Second hand smoke exposure: No Alcohol intake: never Desire information about alcohol rehabilitation?: No Desire information about substance/drug rehabilitation?: No Lives independently: Yes Household members: spouse Marital status: Current occupational status: employed History of recent travel: No Current gender identity: Female Female Reproductive History: Date of last menstrual period: 11/02/20 Physical Exam Const: COMMON NORMALS: no acute distress, no limitations and alert GENERAL APPEARANCE: cooperative Extremity: COMMON NORMALS: full ROM and capillary refill normal GENERAL: Yes normal exam except as noted RIGHT UPPER EXTREMITY: Yes hand & digits (mild ecchymosis to radial dorsal R hand; no swelling) Right hand and digits: Yes ROM exam (normal), Yes neurovascular exam (normal) and Yes other (no tenderness directly over scaphoid ) Neuro: COMMON NORMALS: moves all extremities, no focal motor deficits and no sensory deficits noted SENSORIUM/ORIENTATION: Yes alert Course Vital Signs: Vital signs: Vital Signs Temperature 97.8 F 11/03/21 10:10 Pulse Rate 96 11/03/21 10:10 Respiratory Rate 16 11/03/21 10:10 Blood Pressure 145/88 11/03/21 10:10 Pulse Oximetry 96 11/03/21 10:10 MDM - Extremity Injury (Upper) Medical Decision Making XR negative. Recommend conservative therapy at home and follow up with PCP in 1 week for non-improving pain. Lab Data Radiology Impressions Hand X-Ray 11/03/21 10:18 IMPRESSION: No acute findings. Discharge Plan Discharge Patient Disposition: Home Clinical Impression: Injury of right hand Qualifiers: Encounter type: initial encounter Qualified Code(s): S69.91XA - Unspecified injury of right wrist, hand and finger(s), initial encounter Condition: Stable Prescriptions: No Action propranolol 10 mg tablet 10 mg PO ONCE Qty: 30 2RF Rx Instructions: Take 1/2 tablet twice daily. lamotrigine [Lamictal] 25 mg tablet 25 mg PO BID Qty: 90 3RF Ajovy Autoinjector 225 mg/1.5 mL auto-injector 225 mg SUBCUT ONCE Qty: 1.5 11RF trazodone 100 mg tablet See Rx Instructions .ROUTE .COMPLEX Qty: 30 2RF Dose Instruction: TAKE 1 TABLET BY MOUTH AT BEDTIME Rx Instructions: TAKE 1 TABLET BY MOUTH AT BEDTIME ibuprofen 200 mg Tablet 600 mg PO PRN 0RF Tylenol PM Extra Strength 25-500 mg Tablet 2 tab PO PRN 0RF Discharge Orders: Discharge ED (Routine); Ordered 11/03/21 Ordered By: Jocelynn Silverman Coding Level of Care Code ED Heavy Media Operator for Arturog Sarah
== END 2021-11-03 11:23 | disposition home or self-care (01) ==
PROVIDERS: Emergency Provider Physician Assistant
DX: S69.91XA Unspecified injury of right wrist, hand and finger(s), initial encounter (principal); W19.XXXA Unspecified fall, initial encounter; Z91.81 History of falling
CPT/HCPCS: 73130; 99283

== ENCOUNTER 2022-03-23 12:02 | Emergency (ER) | payer BC, SELFPAY ==
[2022-03-23 12:24] VITALS: BP 116/61; PULSE 75; RESP 15; TEMP 36.6; O2SAT 99
[2022-03-23 12:25] VITALS: BMI 20.7
[2022-03-23 12:37] LABS: HCG Qualitative Urine. Negative (Negative)
[2022-03-23 12:40] LABS: Add Urine Microscopic? NO; Charge for UA Resulting for Rev
[2022-03-23 12:43] LABS: Bilirubin Urine Neg (Negative); Blood Urine Neg (Negative); Glucose Urine UA Norm (Normal); Ketones Urine Negative (Negative); Leukocyte Esterase Urine Negative (Negative); Nitrate Urine Negative (Negative); Protein Urine Neg (Negative); Urine Appearance Clear (CLEAR); Urine Color Yellow (Yellow); Urobilinogen Urine Norm (Negative); pH Urine 6.5 (5-7)
== END 2022-03-23 17:21 | disposition left against medical advice (07) ==
LOC: ER 12:07
PROVIDERS: Emergency Medicine; Emergency Provider Family Medicine
DX: Z53.21 Procedure and treatment not carried out due to patient leaving prior to being seen by health care provider (principal)
CPT/HCPCS: 81003; 81025; 99283

== ENCOUNTER → 2022-05-03 10:32 | Outpatient (BNVA) | payer BC, SELFPAY | PROVIDERS: Visit Provider Registered Nurse Neonatal Intensive Care | DX: R05.9 Cough, unspecified (principal); J40 Bronchitis, not specified as acute or chronic | CPT/HCPCS: 87400 ==

== ENCOUNTER 2022-11-26 14:45 | Emergency (ER) | payer BC, SELFPAY ==
[2022-11-26 14:59] VITALS: BP 128/72; PULSE 80; RESP 20; TEMP 36.7; O2SAT 97; BMI 20.5
[2022-11-26 16:17] LABS: Basophils % 0.5 %; Eosinophils # 0.1 10^3/uL (0.0-0.8); Eosinophils % 1.1 %; Hematocrit 40.3 % (37.0-47.0); Hemoglobin 13.3 g/dL (11.5-15.3); Lymphocytes # 2.3 10^3/uL (0.8-4.8); Lymphocytes % 36.1 %; Mean Corpuscular Hemoglobin 30.5 pg (28.0-34.0); Mean Corpuscular Volume 92.4 fl (81-99); Monocytes # 0.5 10^3/uL (0.2-0.9); Neutrophils # 3.53 10^3/uL (1.8-7.7); Nucleated Red Blood Cells % 0 %; Platelet Count 281 10^3/cmm (130-400); Red Blood Count 4.36 10^6/uL (4.1-5.3); Red Cell Distribution Width 13.9 % (12.1-15.1); White Blood Count 6.4 10^3/uL (4.0-10.0)
--- NOTE | 2022-11-26 16:29 | W.ED.FEMALGU ---
HPI - Female Genitourinary General: Chief complaint: Urogenital-Female Stated complaint: lowr back pain, pelvic cramp, bloating Time Seen by Provider: 11/26/22 15:45 Source: patient Mode of arrival: ambulatory History of Present Illness: 52-year-old female presents emergency room she is at urgent care clinic is having some pelvic pain evidently they evaluated her and thought she had a prolapse and directed her to the emergency room. Patient is reporting being perimenopausal she has some pelvic cramping she had a little spotting last week but none today she denies any dysuria urgency frequency or hematuria. Onset (ago): day(s) Location of symptoms: external genitalia Severity: moderate Quality of pain: cramping Consistency: constant Vaginal discharge: none Vaginal bleeding: none Exacerbating factors: none Relieving factors: none Associated symptoms: Deny abdominal pain, short of breath, fevers/chills, headache(s), nausea, rash, seizures, syncope, vaginal bleeding, vaginal discharge or weakness Treatment prior to arrival: none Review of Systems Const: Denies: fever(s), chills, fatigue or malaise ENMT: Denies: throat pain, ear or mastoid pain, nasal discharge or nasal congestion Card: Denies: chest pain or syncope Resp: Denies: dyspnea, productive cough or non-productive cough GI: Denies: abdominal pain or nausea : Denies: dysuria, urinary frequency, urinary urgency or vaginal discharge Skin/Breast: Denies: rash or pruritus Neuro: Denies: headache(s) PFSH ED PFSH: Surgical History History of Family History Father Cancer Grandfather Cancer Lung disease Social History Quit status (tobacco): not considering quitting Second hand smoke exposure: No Alcohol intake: never Desire information about alcohol rehabilitation?: No Substance/Drug Use: never Desire information about substance/drug rehabilitation?: No Lives independently: Yes Household members: spouse Marital status: Current occupational status: employed Do you think of yourself as: Straight/Heterosexual Current gender identity: Female Physical Exam Const: GENERAL APPEARANCE: cooperative and comfortable ORIENTATION/CONSCIOUSNESS: Yes awake, Yes oriented to person, Yes oriented to place and Yes oriented to time HENMT: COMMON NORMALS: normocephalic, atraumatic and hearing grossly normal bilaterally HEAD & SCALP: normocephalic and atraumatic Resp: COMMON NORMALS: normal respiratory effort, No retractions, No use of accessory muscles and clear to auscultation bilaterally AUSCULTATION: clear to auscultation bilaterally Cardio: COMMON NORMALS: regular rate, regular rhythm and No murmurs present (Cardio) RATE: regular rate RHYTHM: regular rhythm GI: COMMON NORMALS: Soft to palpation and No hepatosplenomegaly present AUSCULTATION: Yes normoactive bowel sounds PALPATION: Yes Soft to palpation, No Tenderness to palpation present (GI), No Guarding due to palpation present (GI) and Yes No hepatosplenomegaly present : SPECULUM EXAM - VAGINA: No vaginal bleeding OB/EXTERNAL & SPECULUM: No vaginal bleeding Back/Pelvis: OTHER: Pelvic exam in dorsolithotomy position no speculum used. Nurse present. Mild cystocele noted no other prolapse no uterine prolapse. Extremity: COMMON NORMALS: normal to inspection, capillary refill normal, no clubbing, cyanosis or edema, no calf tenderness and no pedal edema Neuro: SENSORIUM/ORIENTATION: Yes oriented to person, Yes oriented to place and Yes oriented to time Skin: COMMON NORMALS: no rashes or lesions noted GENERAL SKIN EXAM: no rashes or lesions noted Course Vital Signs: Vital signs: Vital Signs Temperature 98.0 F 11/26/22 14:59 Pulse Rate 58 L 11/26/22 18:58 Respiratory Rate 18 11/26/22 18:58 Blood Pressure 161/76 11/26/22 18:58 Pulse Oximetry 97 11/26/22 18:58 Oxygen Delivery Me thod Room Air 11/26/22 14:59 MDM - Female Medical Decision Making Ultrasound shows uterine fibroid and ovarian cyst. Suspected fibroids with causing her discomfort. Remainder labs otherwise unremarkable white count normal. No sign of UTI. We will discharge patient home with anti-inflammatories. Follow-up with her primary care for referral to gynecology if her continues to cause pain. Differential Diagnosis Likely abdominal pain, acute appendicitis, calculus of kidney, diverticulitis, endometriosis, pancreatitis and small bowel obstruction Medical Records I reviewed the patient's medical records. Lab Data I reviewed the patient's lab results. 11/26/22 15:59 11/26/22 15:59 Radiology Impressions Pelvis Ultrasound 11/26/22 16:54 IMPRESSION: 1. 2.0 x 1.8 x 1.2 cm hypoechoic intramural uterine fibroid, anterior uterine body. 2. 2.8 x 3.1 x 2.6 cm simple right ovarian cyst. 3. Normal ovarian perfusion bilaterally with no torsion. Laboratory Results WBC 6.4 10^3/uL (4.0-10.0) 11/26/22 15:59 RBC 4.36 10^6/uL (4.1-5.3) 11/26/22 15:59 Hgb 13.3 g/dL (11.5-15.3) 11/26/22 15:59 Hct 40.3 % (37.0-47.0) 11/26/22 15:59 MCV 92.4 fl (81-99) 11/26/22 15:59 MCH 30.5 pg (28.0-34.0) 11/26/22 15:59 MCHC 33.0 g/dL (30.0-36.0) 11/26/22 15:59 RDW 13.9 % (12.1-15.1) 11/26/22 15:59 Plt Count 281 10^3/cmm (130-400) 11/26/22 15:59 MPV 9.0 fL (7.4-10.4) 11/26/22 15:59 Neut % (Auto) 55.0 % 11/26/22 15:59 Lymph % (Auto) 36.1 % 11/26/22 15:59 Coffey % (Auto) 7.0 % 11/26/22 15:59 Eos % (Auto) 1.1 % 11/26/22 15:59 Baso % (Auto) 0.5 % 11/26/22 15:59 Neut # (Auto) 3.53 10^3/uL (1.8-7.7) 11/26/22 15:59 Lymph # (Auto) 2.3 10^3/uL (0.8-4.8) 11/26/22 15:59 [place]y # (Auto) 0.5 10^3/uL (0.2-0.9) 11/26/22 15:59 Eos # (Auto) 0.1 10^3/uL (0.0-0.8) 11/26/22 15:59 Baso # (Auto) 0.0 10^3/uL (0.0-0.1) 11/26/22 15:59 Nucleated RBC % (auto) 0 % 11/26/22 15:59 Nucleated RBCs # 0.0 /100WBC 11/26/22 15:59 Sodium 138 mmol/L (136-145) 11/26/22 15:59 Potassium 4.2 mmol/L (3.5-5.1) 11/26/22 15:59 Chloride 106 mmol/L (98-107) 11/26/22 15:59 Carbon Dioxide 23 mmol/L (22-29) 11/26/22 15:59 Anion Gap 13.2 (5-19) 11/26/22 15:59 BUN 8 mg/dL (6-20) 11/26/22 15:59 Creatinine 0.5 mg/dL (0.5-0.9) 11/26/22 15:59 GFR Calculation 130.6 mL/min (90-130) H 11/26/22 15:59 Glucose 107 mg/dL (65-115) 11/26/22 15:59 Calculated Osmolality 285 mOsm/kg (285-295) 11/26/22 15:59 Calcium 8.6 mg/dL (8.5-10.5) 11/26/22 15:59 Total Bilirubin 0.2 mg/dL (0.15-1.2) 11/26/22 15:59 AST 20 U/L (0-32) 11/26/22 15:59 ALT 18 U/L (0-33) 11/26/22 15:59 Alkaline Phosphatase 60 U/L (35-105) 11/26/22 15:59 Total Protein 6.7 g/dL (6.6-8.7) 11/26/22 15:59 Albumin 4.4 g/dL (3.5-5.2) 11/26/22 15:59 Globulin 2.3 g/dL (1.3-4.6) 11/26/22 15:59 Urine Color Straw (Yellow) 11/26/22 16:18 Urine Appearance Clear (CLEAR) 11/26/22 16:18 Urine pH 5 (5-7) 11/26/22 16:18 Ur Specific [place] 1.010 (1.005-1.030) 11/26/22 16:18 Urine Protein Neg (Negative) 11/26/22 16:18 Urine Glucose (UA) Norm (Normal) 11/26/22 16:18 Urine Ketones Negative (Negative) 11/26/22 16:18 Urine Blood Neg (Negative) 11/26/22 16:18 Urine Nitrate Negative (Negative) 11/26/22 16:18 Urine Bilirubin Neg (Negative) 11/26/22 16:18 Urine Urobilinogen Norm mg/dL (Negative) 11/26/22 16:18 Ur Leukocyte Esterase Negative (Negative) 11/26/22 16:18 Discharge Plan Discharge Patient Disposition: Home Clinical Impression: Uterine fibroid, Cystocele Condition: Stable Prescriptions: New hydrocodone-acetaminophen 5-325 mg tablet 1 tab PO Q6H PRN (Reason: pain) Qty: 10 0RF diclofenac sodium 75 mg tablet,delayed release (DR/EC) 75 mg PO Q12H PRN (Reason: pain) Qty: 20 0RF Discharge Orders: Discharge ED (Routine); Ordered 11/26/22 Ordered By: Louis Sandhu Discharge Diet: Usual diet Discharge Activity: Increase activity as tolerated Patient Instructions: Opioid Safety, Pain Management Activity Restrictions/Additional Instructions: You were seen today with pelvic pain. She had a mild cystocele and a uterine fibroid. Pain medications given if symptoms persist follow-up with your primary care doctor for referral to gynecology Coding Level of Care Code ED [employer] Installer for Ignacio Smith
[2022-11-26 16:37] LABS: Add Urine Microscopic? NO; Charge for UA Resulting for Rev
[2022-11-26 16:39] LABS: Alanine Aminotransferase 18 U/L (0-33); Albumin Level 4.4 g/dL (3.5-5.2); Alkaline Phosphatase 60 U/L (35-105); Anion Gap 13.2 (5-19); Aspartate Amino Transferase 20 U/L (0-32); Blood Urea Nitrogen 8 mg/dL (6-20); Calcium 8.6 mg/dL (8.5-10.5); Carbon Dioxide 23 mmol/L (22-29); Chloride 106 mmol/L (98-107); Globulin 2.3 g/dL (1.3-4.6); Glomerular Filtration Rate 130.6 mL/min (90-130); Glucose 107 mg/dL (65-115); Osmolality Calculated 285 mOsm/kg (285-295); Potassium 4.2 mmol/L (3.5-5.1); Sodium 138 mmol/L (136-145); Total Bilirubin 0.2 mg/dL (0.15-1.2); Total Protein 6.7 g/dL (6.6-8.7)
[2022-11-26 16:40] LABS: Bilirubin Urine Neg (Negative); Blood Urine Neg (Negative); Glucose Urine UA Norm (Normal); Ketones Urine Negative (Negative); Leukocyte Esterase Urine Negative (Negative); Nitrate Urine Negative (Negative); Protein Urine Neg (Negative); Urine Appearance Clear (CLEAR); Urine Color Straw (Yellow); Urobilinogen Urine Norm (Negative); pH Urine 5 (5-7)
--- NOTE | 2022-11-26 16:54 | USR_ITS ---
PROCEDURE INFORMATION: Exam: US Nonobstetric Pelvis; Complete Exam date and time: 11/26/2022 5:23 PM Age: 52 years old Clinical indication: Menstruation abnormalities; Irregular menstruation; Additional info: Pelvic pain TECHNIQUE: Imaging protocol: Transabdominal pelvic nonobstetric ultrasound. Complete exam. Real time ultrasound with image documentation. COMPARISON: US pelv w/transvag [id number] 07/16/2017 2:51 PM FINDINGS: Uterus: 9.5 x 5.3 x 5.5 cm uterus with estimated volume 144 cc. 4.1 mm endometrial stripe. 2.0 x 1.8 x 1.2 cm hypoechoic intramural uterine fibroid, anterior uterine body. Right ovary/adnexa: 4.3 x 4.0 x 5.5 cm right ovary with estimated volume 49 cc. 2.8 x 3.1 x 2.6 cm simple right ovarian cyst. Left ovary/adnexa: 2.5 by 2.6 x 1.8 cm left ovary with estimated volume 6.0 cc. Intraperitoneal space: No intraperitoneal fluid. Urinary bladder: Normal. US/US pelvic complete* [id number] IMPRESSION: 1. 2.0 x 1.8 x 1.2 cm hypoechoic intramural uterine fibroid, anterior uterine body. 2. 2.8 x 3.1 x 2.6 cm simple right ovarian cyst. 3. Normal ovarian perfusion bilaterally with no torsion.
[2022-11-26 18:00] VITALS: RESP 16
[2022-11-26 18:58] VITALS: BP 161/76; PULSE 58; RESP 18; O2SAT 97
== END 2022-11-26 19:01 | disposition home or self-care (01) ==
PROVIDERS: Emergency Provider Family Medicine
DX: D25.9 Leiomyoma of uterus, unspecified (principal); N81.10 Cystocele, unspecified
CPT/HCPCS: 36415; 76856; 80053; 81000; 81003; 85025; 99284

== ENCOUNTER → 2023-01-05 15:00 | Outpatient (BNVA) | payer BC, SELFPAY | PROVIDERS: Visit Provider Obstetrics & Gynecology | DX: N92.1 Excessive and frequent menstruation with irregular cycle (principal) | CPT/HCPCS: 83001; 84443 ==

== ENCOUNTER 2023-02-22 09:30 | Observation (INO) | payer BC, SELFPAY ==
[2023-02-19 08:48] LABS: Basophils % 0.9 %; Eosinophils % 0.9 %; Hematocrit 39.3 % (36-47); Lymphocytes # 1.7 10^3/uL (0.8-4.8); Lymphocytes % 36.7 %; Mean Corpuscular HGB Conc 33.3 g/dL (30-55); Mean Corpuscular Hemoglobin 30.8 pg (27-33); Mean Corpuscular Volume 92.3 fl (85-98); Mean Platelet Volume 9.1 fL (7.4-10.4); Monocytes # 0.5 10^3/uL (0.2-0.9); Monocytes % 10.5 %; Neutrophils # 2.31 10^3/uL (1.8-7.7); Neutrophils % 50.8 %; Nucleated Red Blood Cells % 0 %; Platelet Count 244 10^3/cmm (157-399); Red Blood Count 4.26 10^6/uL (3.85-5.65); White Blood Count 4.55 10^3/uL (3.29-11.43)
[2023-02-19 08:52] LABS: Urine Appearance Cloudy (CLEAR); Urine Color Yellow (Yellow); pH Urine 8 (5-7)
[2023-02-19 09:00] LABS: Add Urine Microscopic? YES; Bilirubin Urine Neg (Negative); Blood Urine Neg (Negative); Glucose Urine UA Norm (Normal); Ketones Urine Negative (Negative); Leukocyte Esterase Urine Negative (Negative); Nitrate Urine Negative (Negative); Protein Urine Neg (Negative); Specific Gravity, Urine 1.025 (1.005-1.030); Sulfosalicylic Acid Urine Negative (Negative); Urobilinogen Urine Norm (Negative)
[2023-02-19 09:05] LABS: Bacteria Urine TRACE /hpf; RBC Urine 0-4 /hpf (0-2); WBC Urine 0-4 /hpf (0-5)
[2023-02-19 09:06] LABS: Add Urine Culture? No; Amorphous Sediment Urine 3+ /hpf; Mucus Urine N /hpf
--- NOTE | 2023-02-19 09:06 | P.ANESASSM_ITS ---
Pre-Anesthetic Assessment Height/Weight: Height 1.65 m Operation Date: 02/21/23 12:00 Proposed Procedures p Laparoscopic assisted vaginal hysterectomy, bilateral salpingo-oophorectomy 34383, N92.0,N94.6(Not Applicable) - Truong Magallon MD Was Beta Miesha taken within 24 hours: N/A Was Clonidine taken within 24 hours: N/A Social Tobacco 1 pack(s) per day Exam alert, oriented x 3, clear to auscultation bilaterally and regular rate & rhythm Airway Submandibular: within normal limits Cervical ROM: within normal limits Mallampati: Class II Dentition: false Comments: Comments: Full dentures History/ROS No significant history except as noted Pulmonary None reported CV/HEM None reported None reported Hepatic None reported GI None reported Metabolic None reported Musc/skel None reported Neuropsych Anxiety Not currently on medication for anxiety, but she's reports significant anxiety in anticipation of surgery. She will contact Dr. Magallon's office to ask about Xanax for 1-2 nights pre-procedure. Anesthetic Plan ASA status: 2 Anesthesia: Anesthesia Evaluation and General Risk of > 500 ml blood loss (7ml/kg in children): Yes, adequate IV access and fluids planned Medications/Allergies Home Medications Medication Instructions Recorded Confirmed Last Taken Type No Known Home Medications 01/05/23 02/19/23 Unknown History Allergies Allergy/AdvReac Type Severity Reaction Status Date / Time No Known Allergies Allergy Verified 02/12/23 09:10 COUNTS INCLUDE 234 BEDS AT THE [facility] Anesthesia Surgical History History of Family History Father Cancer Grandfather Cancer Lung disease Hypertension Heart disease Grandmother Diabetes Hypertension High cholesterol Heart disease Mother Thyroid disease Hypertension Denies family history of Colon cancer Ovarian cancer Breast cancer Uterine cancer Stroke Social History Quit status (tobacco): not considering quitting Second hand smoke exposure: No Alcohol intake: never Desire information about alcohol rehabilitation?: No Substance/Drug Use: never Desire information about substance/drug rehabilitation?: No Lives independently: Yes Household members: spouse Marital status: Current occupational status: employed Do you think of yourself as: Straight/Heterosexual Current gender identity: Female Female Reproductive History Date of last menstrual period: 02/06/23 Data Anesthesia 02/19/23 08:25 02/19/23 08:25 Short CBC 02/19/23 Range/Units 08:25 WBC 4.55 (3.29-11.43) 10^3/uL Hgb 13.10 (11.27-16.99) g/dL Hct 39.3 (36-47) % MCV 92.3 (85-98) fl Plt Count 244 (157-399) 10^3/cmm Neut % (Auto) 50.8 % Neut # (Auto) 2.31 (1.8-7.7) 10^3/uL Urine 02/19/23 Range/Units 08:25 Urine Color Yellow (Yellow) Urine Appearance Cloudy A (CLEAR) Urine pH 8 H (5-7) Ur Specific [place] 1.025 (1.005-1.030) Urine Protein Neg (Negative) Urine Glucose (UA) Norm (Normal) Urine Ketones Negative (Negative) Urine Nitrate Negative (Negative) Urine Bilirubin Neg (Negative) Ur Leukocyte Esterase Negative (Negative) Urine RBC 0-4 H (0-2) /hpf Urine WBC 0-4 H (0-5) /hpf Cardiac Studies: No Data to Display
[2023-02-19 09:07] LABS: Alanine Aminotransferase 8 U/L (0-33); Albumin Level 4.6 g/dL (3.5-5.2); Alkaline Phosphatase 60 U/L (35-105); Anion Gap 11.9 (5-19); Aspartate Amino Transferase 13 U/L (0-32); Blood Urea Nitrogen 9 mg/dL (6-20); Carbon Dioxide 26 mmol/L (22-29); Chloride 102 mmol/L (98-107); Globulin 2.2 g/dL (1.3-4.6); Glomerular Filtration Rate 88.6 mL/min (90-130); Glucose 101 mg/dL (65-115); Osmolality Calculated 281 mOsm/kg (285-295); Potassium 3.9 mmol/L (3.5-5.1); Sodium 136 mmol/L (136-145); Total Bilirubin 0.2 mg/dL (0.15-1.2); Total Protein 6.8 g/dL (6.6-8.7)
[2023-02-22] VITALS (20 sets, daily range): BP systolic 113–152; BP diastolic 65–97; PULSE 51–98; RESP 15–22; TEMP 36.2–36.9; O2SAT 95–100; BMI 19.8
[2023-02-22] MEDS: sodium chloride 0.9% 1,000 ML 30 ML IV (06:17)
[2023-02-22] MEDS: scopolamine 1.5 Patch 1 PATCH TRANSDERMA (06:23)
--- NOTE | 2023-02-22 06:37 | ANES.PAUD2 ---
Pre-Anesthetic Update Pre-Anesthetic Assessment: Date of Surgery/Procedure: 02/22/23 Proposed Procedure: Operation Date: 02/22/23 07:00 Proposed Procedures p Laparoscopic assisted vaginal hysterectomy, bilateral salpingo-oophorectomy 91989, N92.0,N94.6(Not Applicable) - Truong Magallon MD Any changes to Pre-Anesthetic Assessment?: No Last Intake: Intake Last Liquid Date 02/21/23 Last Liquid Time 21:30 Last Solid Date 02/21/23 Last Solid Time 21:30 Vitals: Temperature 98.3 F 02/22/23 06:02 Temperature Source Temporal Artery S can 02/22/23 06:02 Pulse Rate 80 02/22/23 06:02 Respiratory Rate 17 02/22/23 06:02 Blood Pressure 113/79 02/22/23 06:02 Blood Pressure Romy n 90 02/22/23 06:02 Pulse Oximetry 98 02/22/23 06:02 Oxygen Delivery Me thod Room Air 02/22/23 06:03 Exam: Pre-Anes Outpt Exam: alert, oriented x 3, clear to auscultation bilaterally and regular rate & rhythm Cardiac Studies: No Data to Display
[2023-02-22] MEDS: midazolam 1 mg/mL INJ 2 mL 2 MG IVP (06:42)
--- NOTE | 2023-02-22 06:47 | P.HPUD_ITS ---
Surgery/Procedure H&P Update DATE OF PROCEDURE: February 22, 2023 DATE H&P PERFORMED: 02/12/23 H&P UPDATE INFORMATION: I have reviewed H&P completed within last 30 days, I have examined patient prior to procedure and No changes to prior documentation PLANNED PROCEDURE: Operation Date: 02/22/23 07:00 Proposed Procedures p Laparoscopic assisted vaginal hysterectomy, bilateral salpingo-oophorectomy 5 8554, N92.0,N94.6(Not Applicable) - Truong Magallon MD
[2023-02-22 06:49] LABS: OR HCG Qualitative Urine Negative (Negative)
[2023-02-22] MEDS: ceFAZolin 1,000 mg SDV 1000 MG IVP (07:02)
[2023-02-22] MEDS: BUPivacaine 0.5% INJ 10 mL INJECTION (07:52)
[2023-02-22] MEDS: lidocaine-epi 1% 20 mL INJ 10 ML INJECTION (07:54)
--- NOTE | 2023-02-22 09:01 | PM.OP ---
Operative Report Date of procedure: February 22, 2023 Pre-op diagnosis: Chronic pelvic pain, uterine fibroid, dyspareunia, abnormal uterine bleeding Post-op diagnosis: Same Post-op findings: Enlarged uterus Normal left and right fallopian tube and ovary Procedure done: Laparoscopic-assisted vaginal hysterectomy with bilateral salpingo-oophorectomy. Lysis of adhesions Specimens removed/disposition: Uterus Left and right fallopian tube and ovaries Surgeon: Truong Magallon MD Estimated blood loss (mL): 100 IV fluids (mL): 1,200 Urine output (mL): 100 Procedure: After discussing informed consent again, the patient was taken to the operating room where general anesthesia was administered. She was placed in the dorsal lithotomy position in low stirrups and prepped and draped in sterile fashion. Pre-Procedure Time-Out verifying the correct patient identity, correct procedure verified with consent, correct site and side, correct patient position, availability of correct implants and any special equipment or requirements was performed and acknowledge by the OR team. After the initial preparation, the procedure commenced at the vagina. With a Bookwalter vaginal retractor was place to visualize the cervix; the anterior and posterior lips of the cervix were separately grasped and clamped with eda tooth tenaculum. The cervix was then dilated to a #6 hegar dilator and a uterine manipulator within the uterine cavity for manipulation purposes being careful not to puncture the uterus. A Altamirano catheter was placed in the bladder. Attention was then turned to the abdomen. The umbilical region was infiltrated with 0.5% Marcaine with epinephrine. Following infiltration with Marcaine, an intraumbilical incision was made and the Verres needle was gently advanced taking care to feel for the typical sensation of penetrating the peritoneum. With CO2 infiltration, an opening pressure of 5 mmHg was noted, and following this, a pneumoperitoneum of 15 mmHg was created. A 5 mm Optiview trocar was then passed through the same incision under direct visualization. Trocar was removed and the laparoscope was then inserted through the trocar sleeve. Visualization of the peritoneal cavity was then obtained and a brief inspection did not reveal any signs of complications from entry. Under direct observation, a second incision was made 3 cm above the symphysis pubis, and a 5 mm trocar and sleeve were admitted into the abdomen under direct, laparoscopic visualization. Once the placement of the ports was complete, anatomy survey revealed omental adhesions to the lower right anterior abdominal wall. With the LigaSure the laparoscopic device the adhesions were lysed. The pelvic contents were visualized and noted an enlarged uterus, deep cul-de-sac, normal bilateral fallopian tubes and ovaries normal, normal appendix, and both ureters were identified crossing the pelvic brim and pelvic sidewall. The left infundibulopelvic ligament was grasped and was coagulated/sealed and then transected with the Enseal device. The mesosalpinx was then sequentially, clamped, ligated, and cut using the Enseal device working alongside the length of the tube and towards the cornua. The left round ligament was grasped coagulated/sealed and transected using Enseal device. The left broad ligament was opened down to the level of the uterine artery and vein. The right infundibulopelvic ligament was grasped and the tuboovarian ligament was coagulated/sealed and then transected with the Enseal device. The mesosalpinx was then sequentially, clamped, ligated, and cut using the Enseal device working alongside the length of the tube and towards the cornua. The right round ligament was grasped coagulated/sealed and then transected with the Enseal device, and the right broad ligament was opened down to the level of the right uterine artery and vein. Peritoneum of the lower uterine segment was entered using Enseal, and the bladder was dissected off the lower uterine segment using blunt dissection. Careful inspection revealed complete hemostasis. Attention was then turned to the vaginal aspect of the surgery. The Altamirano catheter was clamped. A Bookwalter vaginal retractor was placed in the vagina and the uterine manipulator was removed. The tenaculum was repositioned anteriorly and posteriorly. A circumferential incision was made at the cervical vaginal reflection using cautery. This was undermined first anteriorly and a colpotomy made without difficulty. This was then repeated posteriorly and a similar colpotomy made. Beginning first on the patient's left, the uterosacral and cardinal ligament was clamped, sealed, divided with the Enseal device and suture ligated. Two bites were required to reach the previous dissection margin of the left side. The same process was then repeated on the patient's right hand side, at which point, the specimen was completely freed. Once the sutures had been placed and the pedicles secured, the uterus along with both tubes and ovaries were removed transvaginally without difficulty. All pedicles were inspected and hemostasis was confirmed. The patietn was given indigo carmine. The vaginal vault was then oversewn with a running locking Vicryl suture, securing first the posterior edge of the cuff followed by the anterior edge. Good hemostasis was obtained. Two [id number] sutures were then placed across the vaginal vault to close it. Once these had been tied off, all sutures were trimmed. The Altamirano catheter was noted with clear green urine. All instruments were removed from the vagina at this time. Then attention was again turned back to the abdomen and inspected the abdomen to ensure complete hemostasis. Once the entire abdomen was inspected. The ports were then removed under direct visualization being sure to note hemostasis of the port sites on removal. The incisions were then closed with interrupted Monocryl sutures. The patient tolerated the procedure well, anesthesia reversed, and the patient was taken to the recovery room in stable condition. All sponges, instruments, and sharps were counted and correct x 3.
[2023-02-22] MEDS: HYDROmorphone 1 mg/mL INJ 1 mL 0.5 MG IVP (09:57)
--- NOTE | 2023-02-22 10:05 | ANE.PACU2 ---
Inpatient post-anesthesia follow up: Airway intact: Yes Vital signs: Temperature 97.2 F Pulse Rate 77 Respiratory Rate 18 Blood Pressure 147/83 Pulse Oximetry 98 Oxygen Delivery Me thod Room Air Oxygen Flow Rate 5 Fraction of Inspir ed Oxygen Hydration adequate: Yes Nausea and vomiting: No Pain level: 1 Mental status: Baseline
[2023-02-22] MEDS: hyDROXYzine 25 mg Capsule 50 MG PO (10:59)
[2023-02-22] MEDS: HYDROcodone-acetaminophen 5-325 mg Tablet PO ×3 (10:59→22:53)
[2023-02-22] MEDS: dextrose 5%-lactated ringers 1,000 ML 125 ML IV ×2 (14:24→22:52)
[2023-02-22] MEDS: ketorolac 30 mg/mL INJ IVP ×2 (15:45→20:41)
[2023-02-22] MEDS: docusate sodium 100 mg Capsule PO (16:15)
[2023-02-22] MEDS: simethicone 80 mg Chew PO (20:41)
[2023-02-23] MEDS: simethicone 80 mg Chew PO (04:51)
[2023-02-23] MEDS: ketorolac 30 mg/mL INJ IVP (04:51)
[2023-02-23 04:53] VITALS: BP 119/69; PULSE 62; RESP 16; TEMP 36.9; O2SAT 97
[2023-02-23] MEDS: HYDROcodone-acetaminophen 5-325 mg Tablet PO (04:59)
[2023-02-23 05:17] LABS: Hematocrit 29.8 % (36-47); Mean Corpuscular HGB Conc 32.9 g/dL (30-55); Mean Corpuscular Hemoglobin 30.8 pg (27-33); Mean Corpuscular Volume 93.7 fl (85-98); Mean Platelet Volume 10.5 fL (7.4-10.4); Platelet Count 227 10^3/cmm (157-399); Red Blood Count 3.18 10^6/uL (3.85-5.65); Red Cell Distribution Width 13.3 % (12.1-15.1); White Blood Count 8.85 10^3/uL (3.29-11.43)
[2023-02-23] MEDS: ibuprofen 800 mg tablet PO (10:01)
[2023-02-23] MEDS: docusate sodium 100 mg Capsule PO (10:01)
--- NOTE | 2023-02-23 11:20 | PM.OBGYDC ---
Discharge Providers [employer] Date of Admission: 02/22/23 09:30 Date of Discharge: 02/23/23 Attending Provider at Admission: Truong Magallon MD Attending Provider at Discharge: Truong Magallon MD Reason for Visit Reason for Visit: D25.1, R10.2, G89.29, N94.6, N92.0 Hospital Course Hospital Course Mrs. Oconnell 52-year-old female with a history of pelvic pain with fibroid uterus admitted for plan laparoscopic-assisted vaginal hysterectomy. The laparoscopic-assisted vaginal hysterectomy with bilateral salpingo-oophorectomy and lysis of adhesions were performed without complication. Overnight postop observation was uneventful. She is afebrile hemodynamically stable postoperative day 1. Tolerating diet well. Ambulating without difficulty. She was counseled regarding pelvic rest for 6 weeks (no sex, no tampons, no vaginal douches). Return to the emergency room if any fever, increased bleeding or pain. Physical Exam Narrative: GA: Alert and oriented ?3. HEENT: WNL. Heart: Regular rate and rhythm. Lungs: Clear to auscultation bilaterally. Abdomen: Bowel sounds present, nontender, minimal tenderness, incision clean and dry, no redness, pain or edema. YOUTH SPECIALIST: No bleeding. Extremities: No edema, no cyanosis, no calves pain. Urinary Catheter Management: [place]: Cath Placed During This Visit: yes, but has since been removed by the nurse Reason for Continuing Indwelling Catheter: Decision to DC Catheter Urinary Catheter Date of Insertion: 02/22/23 Urinary Catheter Time of Insertion: 07:33 Date Urinary Catheter Removed: 02/23/23 Time Urinary Catheter Discontinued: 05:06 Discharge Data Studies Completed and Pending Pending at discharge Category Date Time Status Pathology: Surgical [PTH] Routine Pth 02/22/23 08:49 Received Laboratory Results WBC 8.85 10^3/uL (3.29-11.43) 02/23/23 05:05 RBC 3.18 10^6/uL (3.85-5.65) L 02/23/23 05:05 Hgb 9.80 g/dL (11.27-16.99) L 02/23/23 05:05 Hct 29.8 % (36-47) L 02/23/23 05:05 MCV 93.7 fl (85-98) 02/23/23 05:05 MCH 30.8 pg (27-33) 02/23/23 05:05 MCHC 32.9 g/dL (30-55) 02/23/23 05:05 RDW 13.3 % (12.1-15.1) 02/23/23 05:05 Plt Count 227 10^3/cmm (157-399) 02/23/23 05:05 MPV 10.5 fL (7.4-10.4) H 02/23/23 05:05 Neut % (Auto) 50.8 % 02/19/23 08:25 Lymph % (Auto) 36.7 % 02/19/23 08:25 [place]ook[place] % (Auto) 10.5 % 02/19/23 08:25 Eos % (Auto) 0.9 % 02/19/23 08:25 Baso % (Auto) 0.9 % 02/19/23 08:25 Neut # (Auto) 2.31 10^3/uL (1.8-7.7) 02/19/23 08:25 Lymph # (Auto) 1.7 10^3/uL (0.8-4.8) 02/19/23 08:25 Rook[place] # (Auto) 0.5 10^3/uL (0.2-0.9) 02/19/23 08:25 Eos # (Auto) 0.0 10^3/uL (0.0-0.8) 02/19/23 08:25 Baso # (Auto) 0.0 10^3/uL (0.0-0.1) 02/19/23 08:25 Nucleated RBC % (auto) 0 % 02/19/23 08:25 Nucleated RBCs # 0.0 /100WBC 02/19/23 08:25 Sodium 136 mmol/L (136-145) 02/19/23 08:25 Potassium 3.9 mmol/L (3.5-5.1) 02/19/23 08:25 Chloride 102 mmol/L (98-107) 02/19/23 08:25 Carbon Dioxide 26 mmol/L (22-29) 02/19/23 08:25 Anion Gap 11.9 (5-19) 02/19/23 08:25 BUN 9 mg/dL (6-20) 02/19/23 08:25 Creatinine 0.7 mg/dL (0.5-0.9) 02/19/23 08:25 GFR Calculation 88.6 mL/min (90-130) L 02/19/23 08:25 Glucose 101 mg/dL (65-115) 02/19/23 08:25 Calculated Osmolality 281 mOsm/kg (285-295) L 02/19/23 08:25 Calcium 9.0 mg/dL (8.5-10.5) 02/19/23 08:25 Total Bilirubin 0.2 mg/dL (0.15-1.2) 02/19/23 08:25 AST 13 U/L (0-32) 02/19/23 08:25 ALT 8 U/L (0-33) 02/19/23 08:25 Alkaline Phosphatase 60 U/L (35-105) 02/19/23 08:25 Total Protein 6.8 g/dL (6.6-8.7) 02/19/23 08:25 Albumin 4.6 g/dL (3.5-5.2) 02/19/23 08:25 Globulin 2.2 g/dL (1.3-4.6) 02/19/23 08:25 Urine Color Yellow (Yellow) 02/19/23 08:25 Urine Appearance Cloudy (CLEAR) A 02/19/23 08:25 Urine pH 8 (5-7) H 02/19/23 08:25 Ur Specific [place] 1.025 (1.005-1.030) 02/19/23 08:25 Urine Protein Neg (Negative) 02/19/23 08:25 Urine Glucose (UA) Norm (Normal) 02/19/23 08:25 Urine Ketones Negative (Negative) 02/19/23 08:25 Urine Blood Neg (Negative) 02/19/23 08:25 Urine Nitrate Negative (Negative) 02/19/23 08:25 Urine Bilirubin Neg (Negative) 02/19/23 08:25 Prot Sulfosalicylic Acd Negative (Negative) 02/19/23 08:25 Urine Urobilinogen Norm mg/dL (Negative) 02/19/23 08:25 Ur Leukocyte Esterase Negative (Negative) 02/19/23 08:25 Urine RBC 0-4 /hpf (0-2) H 02/19/23 08:25 Urine WBC 0-4 /hpf (0-5) H 02/19/23 08:25 Ur Squamous Epith Cells 5-10 /hpf (0-5) H 02/19/23 08:25 Amorphous Sediment 3+ /hpf 02/19/23 08:25 Urine Bacteria Trace /hpf (NONE) 02/19/23 08:25 Urine Mucus N /hpf 02/19/23 08:25 Urine HCG, Qual Negative (Negative) 02/22/23 06:48 Blood Type O Positive 02/19/23 08:25 Rho(D) Type Positive 02/19/23 08:25 Antibody Screen Negative 02/19/23 08:25 Vitals Last Vital Signs Temp 98.4 F 02/23/23 04:53 Pulse 62 02/23/23 04:53 Resp 16 02/23/23 04:53 BP 119/69 02/23/23 04:53 Pulse Ox 97 02/23/23 04:53 O2 Del Method Room Air 02/23/23 04:53 O2 Flow Rate 5 02/22/23 09:23 Discharge Plan Discharge Patient Disposition: Home Condition: Stable Prescriptions: New ibuprofen 800 mg tablet 800 mg PO TID PRN (Reason: pain) Qty: 60 0RF docusate sodium [Colace] 100 mg capsule 100 mg PO BID Qty: 60 0RF acetaminophen 325 mg capsule 325 mg PO Q4H PRN (Reason: fever or pain) Qty: 60 0RF ferrous sulfate [Iron (ferrous sulfate)] 325 mg (65 mg iron) tablet 325 mg PO BID Qty: 60 0RF hydrocodone-acetaminophen 5-325 mg tablet 1 tab PO Q4H PRN (Reason: pain) Qty: 20 0RF Discharge Orders: Discharge Order (Routine); Ordered 02/23/23 Ordered By: Truong Magallon Referrals: Truong Magallon MD [Physician] - 03/07/23 9:15 am (Your 2 week follow up will be with Joan Kauffman NP on 03/07/23 at 9:15am Your 6 week follow up will be with Dr Magallon on 04/02/23 at 10:45am ) Discharge Diet: Usual diet Discharge Activity: Limit activity as instructed Patient Instructions: Hydrocodone/Acetaminophen (By mouth) (Vicodin, [place], Lortab), Salpingo-Oophorectomy (GEN), Laparoscopic Hysterectomy (GEN), OB Abdominal Surgery - [facility], OB Food/Drug Interaction Guide, Opioid Safety, Vaginal Hysterectomy (GEN) Activity Restrictions/Additional Instructions: 1. Please call [facility] on next working day to make your [post-operative] appointment in [2] weeks. 2. Please stay home until you come back to the clinic on first post-hospatilization check up. 3. Please follow instructions on your medications CAREFULLY. 4. If you have abdominal incision, do not cover it unless dressing is necessary because of drainage. OK to shower, but avoid bath. Leave steri-strips until they fall off. If they are still on one week after surgery, you may remove them. 5. If you had vaginal surgery or vaginal repair, Dr. Magallon may instruct you to take SITZ bath. 6. Yellow, blood tinged odorous vaginal discharge is usually normal after hysterectomy or vaginal surgeries. 7. No SEXUAL INTERCOURSE, tampons, or douches until you are completely released from the post-operative care. 8. Avoid constipation by eating right and maybe using some Metamucil or Milk of Magnesia. 9. All prescription refills are given during the working hours. Please do no wait till it runs out. Call the clinic at [phone] before your medication runs out. The clinic will get in touch with your doctor to prescribe medications if necessary. 10. Please remain within 40 mile radius from our hospital because emergencies do happen now and then during the post-operative period. 11. If you have stairs at home, take one step at a time slowly and minimize the number of trips. It helps to stay in one floor for the next few days. No lifting except what you can lift by one hand until you are released from the post-operative care. 12. Driving is discouraged until you are well healed. It may be 3-4 weeks before you feel strong enough to drive. You should be able to turn and look through the rear window without pain and you should be able to push the brake pedal very hard without pain before you drive. No fast rules, but SAFETY should be your primary concern. DO NOT drive if you are on sedating medications such as narcotics. 13. Call the clinic (during working hours) to make urgent appointment or go to the Emergency room, if any of the following occurs: i. Vaginal bleeding becomes heavy, more than a period. ii. Incision becomes red and sore, or drains pus. iii. Your TEMPERATURE is over 100.4F or you have chill. iv. IV site becomes red and swollen (a little ``knot?? is usually OK) v. Persistent nausea and vomiting vi. Persistent constipation or diarrhea vii. Rash or allergic reaction to medications. Discharge Attestations [employer] Time Spent in Discharge Care*: greater than 30 min Coding Level of Care Code Acute Code for Chg Fwd Diagnoses
[2023-02-23 12:00] VITALS: BP 150/86; PULSE 56; RESP 16; TEMP 36.7
== END 2023-02-23 12:25 | disposition home or self-care (01) ==
LOC: OBGYN 09:30
PROVIDERS: Admitting Provider Obstetrics & Gynecology; Visit Provider Obstetrics & Gynecology
PROC: 0UT9FZZ Resection of Uterus, Via Natural or Artificial Opening With Percutaneous Endoscopic Assistance (ICD-10-PCS; CPT 58552; principal; 2023-02-22 07:00)
PROC: (CPT 58720; 2023-02-22 07:00)
DX: R10.2 Pelvic and perineal pain (principal); G89.29 Other chronic pain; D25.9 Leiomyoma of uterus, unspecified; N94.10 Unspecified dyspareunia; N93.9 Abnormal uterine and vaginal bleeding, unspecified; K66.0 Peritoneal adhesions (postprocedural) (postinfection); F17.210 Nicotine dependence, cigarettes, uncomplicated
CPT/HCPCS: 58552; 36415; 80053; 81001; 81025; 84703; 85025; 85027; 86850; 86900; 88307; G0378; J0131; J0690; J1100; J1170; J1200; J1885; J2250; J2405; J2704; J2710; J3010; J3490; J7030; J7121

== ENCOUNTER 2023-11-04 08:30 | Emergency (ER) | payer BC, SELFPAY ==
[2023-11-04 08:47] VITALS: BP 166/105; PULSE 104; RESP 16; TEMP 37; O2SAT 98
--- NOTE | 2023-11-04 08:57 | W.ED.ABDPA2 ---
HPI - Abdominal Pain General: Chief Complaint: Abdominal Pain Stated Complaint: abd pain, pain while urination, fever Time Seen by Provider: 11/04/23 08:53 Source: patient Mode of arrival: ambulatory History of Present Illness: 53-year-old female who presents to the emergency room with complaints of right upper quadrant abdominal pain that she has had for the last 3 days. Nausea and fever Tmax about 102 Fahrenheit. She denies any hematuria but has had some dysuria. She has had kidney stones in the past she relates this feels different than that. Pain begins in her right upper quadrant radiates down into the pelvic area she did try some ibuprofen without relief. She denies diarrhea hematochezia hematemesis. MD elicited complaint: abdominal pain Location: RUQ and R flank Severity: moderate Quality: sharp Radiation: suprapubic (right) Exacerbating factors: eating Relieving factors: nothing Associated Symptoms: Denies anorexia, belching, bloating, change in bowel habits, change in stool character, chills, coffee ground emesis, constipation, GI cramping, diarrhea, dyspepsia, dysuria, excessive flatus, fever(s), heartburn, hematochezia, hematuria, hematemesis, fecal incontinence, loose stools, melena, nausea, poor appetite, syncope and vomiting Review of Systems Const: Denies: fever(s) or chills Card: Denies: chest pain or syncope Resp: Denies: dyspnea GI: Denies: abdominal pain, nausea, vomiting, hematemesis, coffee ground emesis, heartburn, diarrhea, constipation, bloating, GI cramping, belching, excessive flatus, fecal incontinence, change in bowel habits, change in stool character, hematochezia or melena : Denies: dysuria, urinary frequency, urinary urgency or hematuria Musc: Denies: neck pain or back pain Skin/Breast: Denies: rash [facility] PFSH: Medical History (Updated 11/04/23 @ 10:58 by Louis Sandhu DO) Nephrolithiasis No pertinent past medical history neghx: htn,dm,thyroid,dvt/pe PCP: Seizure Surgical History History of hysterectomy (~02/22/23) MIC, CLEOPATRA, SASHA performed by Naun at [facility] for CPP, dyspareunia, AUB History of Family History Father Cancer Grandfather Cancer Lung disease Hypertension Heart disease Grandmother Diabetes Hypertension High cholesterol Heart disease Mother Thyroid disease Hypertension Denies family history of Colon cancer Ovarian cancer Breast cancer Uterine cancer Stroke Social History Quit status (tobacco/nicotine): not considering quitting Second hand smoke exposure: No Alcohol intake: never Substance/Drug Use: never Lives independently: Yes Household members: spouse Marital status: Current occupational status: employed Do you think of yourself as: Straight/Heterosexual Current gender identity: Female Physical Exam Const: GENERAL APPEARANCE: cooperative and comfortable ORIENTATION/CONSCIOUSNESS: Yes awake, Yes oriented to person, Yes oriented to place and Yes oriented to time HENMT: COMMON NORMALS: normocephalic, atraumatic and hearing grossly normal bilaterally HEAD & SCALP: normocephalic and atraumatic Resp: COMMON NORMALS: normal respiratory effort, No retractions, No use of accessory muscles and clear to auscultation bilaterally AUSCULTATION: clear to auscultation bilaterally Cardio: COMMON NORMALS: regular rate, regular rhythm and No murmurs present (Cardio) RATE: regular rate RHYTHM: regular rhythm GI: COMMON NORMALS: No hepatosplenomegaly present AUSCULTATION: Yes normoactive bowel sounds PALPATION: Yes Tenderness to palpation present (GI) Details: RUQ, No Guarding due to palpation present (GI) and Yes No hepatosplenomegaly present Extremity: COMMON NORMALS: normal to inspection, capillary refill normal, no clubbing, cyanosis or edema, no calf tenderness and no pedal edema Neuro: SENSORIUM/ORIENTATION: Yes oriented to person, Yes oriented to place and Yes oriented to time Skin: COMMON NORMALS: no rashes or lesions noted GENERAL SKIN EXAM: no rashes or lesions noted Course Vital Signs: Vital signs: Vital Signs Temperature 98.6 F 11/04/23 08:47 Pulse Rate 87 11/04/23 10:32 Respiratory Rate 16 11/04/23 08:47 Blood Pressure 127/74 11/04/23 10:32 Pulse Oximetry 95 11/04/23 10:32 Oxygen Delivery Me thod Room Air 11/04/23 10:32 MDM - Abdominal Pain Medical Decision Making CT negative. Slightly low WBC. Repeat exam unremarkable. No signs of acute findings on CT abdomen or urine. Discharge home clear liquid diet antiemetics as needed return if is further problems Medical Records I reviewed the patient's medical records. Lab Data I reviewed the patient's lab results. 11/04/23 09:12 11/04/23 09:12 Labs/Radiology: Radiology Impressions Abdomen/Pelvis CT 11/04/23 09:48 IMPRESSION: No acute findings in the abdomen/pelvis. Laboratory Results WBC 2.80 10^3/uL (3.29-11.43) L 11/04/23 09:12 RBC 4.70 10^6/uL (3.85-5.65) 11/04/23 09:12 Hgb 14.30 g/dL (11.27-16.99) 11/04/23 09:12 Hct 43.1 % (36-47) 11/04/23 09:12 MCV 91.7 fl (85-98) 11/04/23 09:12 MCH 30.4 pg (27-33) 11/04/23 09:12 MCHC 33.2 g/dL (30-55) 11/04/23 09:12 RDW 12.9 % (12.1-15.1) 11/04/23 09:12 Plt Count 266 10^3/cmm (157-399) 11/04/23 09:12 MPV 9.1 fL (7.4-10.4) 11/04/23 09:12 Neut % (Auto) 72.4 % 11/04/23 09:12 Lymph % (Auto) 15.4 % 11/04/23 09:12 [place] % (Auto) 10.7 % 11/04/23 09:12 Eos % (Auto) 0.0 % 11/04/23 09:12 Baso % (Auto) 1.1 % 11/04/23 09:12 Neut # (Auto) 2.03 10^3/uL (1.8-7.7) 11/04/23 09:12 Lymph # (Auto) 0.4 10^3/uL (0.8-4.8) L 11/04/23 09:12 [place] # (Auto) 0.3 10^3/uL (0.2-0.9) 11/04/23 09:12 Eos # (Auto) 0.0 10^3/uL (0.0-0.8) 11/04/23 09:12 Baso # (Auto) 0.0 10^3/uL (0.0-0.1) 11/04/23 09:12 Nucleated RBC % (auto) 0 % 11/04/23 09:12 Nucleated RBCs # 0.0 /100WBC 11/04/23 09:12 Sodium 138 mmol/L (136-145) 11/04/23 09:12 Potassium 4.0 mmol/L (3.5-5.1) 11/04/23 09:12 Chloride 102 mmol/L (98-107) 11/04/23 09:12 Carbon Dioxide 24 mmol/L (22-29) 11/04/23 09:12 Anion Gap 16.0 (5-19) 11/04/23 09:12 BUN 6 mg/dL (6-20) 11/04/23 09:12 Creatinine 0.7 mg/dL (0.5-0.9) 11/04/23 09:12 GFR Calculation 88.2 mL/min (90-130) L 11/04/23 09:12 Glucose 93 mg/dL (65-115) 11/04/23 09:12 Calculated Osmolality 283 mOsm/kg (285-295) L 11/04/23 09:12 Lactic Acid 0.7 mmol/L (0.5-2.2) 11/04/23 09:12 Calcium 9.2 mg/dL (8.5-10.5) 11/04/23 09:12 Total Bilirubin 0.3 mg/dL (0.15-1.2) 11/04/23 09:12 AST 14 U/L (0-32) 11/04/23 09:12 ALT 11 U/L (0-33) 11/04/23 09:12 Alkaline Phosphatase 72 U/L (35-105) 11/04/23 09:12 Total Protein 7.5 g/dL (6.6-8.7) 11/04/23 09:12 Albumin 4.5 g/dL (3.5-5.2) 11/04/23 09:12 Globulin 3.0 g/dL (1.3-4.6) 11/04/23 09:12 Lipase 25 U/L (13-60) 11/04/23 09:12 Urine Color Yellow (Yellow) 11/04/23 09:26 Urine Appearance Clear (CLEAR) 11/04/23 09:26 Urine pH 7 (5-7) 11/04/23 09:26 Ur Specific [place] 1.015 (1.005-1.030) 11/04/23 09:26 Urine Protein Neg (Negative) 11/04/23 09:26 Urine Glucose (UA) Norm (Normal) 11/04/23 09:26 Urine Ketones 2+ (Negative) H 11/04/23 09:26 Urine Blood Trace (Negative) H 11/04/23 09:26 Urine Nitrate Negative (Negative) 11/04/23 09:26 Urine Bilirubin Neg (Negative) 11/04/23 09:26 Urine Urobilinogen Norm mg/dL (Negative) 11/04/23 09:26 Ur Leukocyte Esterase Negative (Negative) 11/04/23 09:26 Urine RBC Rare /hpf (0-2) 11/04/23 09:26 Urine WBC 0-4 /hpf (0-5) H 11/04/23 09:26 Ur Squamous Epith Cells 0-4 /hpf (0-5) H 11/04/23 09:26 Amorphous Sediment 1+ /hpf 11/04/23 09:26 Urine Bacteria 1+ /hpf (NONE) H 11/04/23 09:26 No radiology studies performed this visit Discharge Plan Discharge Patient Disposition: Home Clinical Impression: Gastroenteritis Condition: Stable Prescriptions: New promethazine 25 mg tablet 25 mg PO Q6H PRN (Reason: nausea and vomiting) Qty: 20 0RF No Action estradiol 0.5 mg tablet 1 mg PO QDAY Qty: 90 3RF acetaminophen 325 mg capsule 325 mg PO Q4H PRN (Reason: fever or pain) Qty: 60 0RF Discharge Orders: Discharge ED (Routine); Ordered 11/04/23 Ordered By: Louis Sandhu Discharge Diet: Clear Liquid Patient Instructions: Gastroenteritis (ED), Opioid Safety, Pain Management Activity Restrictions/Additional Instructions: Thank you for choosing [facility] for your healthcare needs today. It is very important that you follow up as instructed or that you return to the Emergency Department should you have concerns or if your condition changes or worsens in any way. Coding Level of Care Code ED Line Maintenance for Ignacio Smith
[2023-11-04] MEDS: sodium chloride 0.9% 1,000 ML 999 ML IV (09:21)
[2023-11-04 09:24] VITALS: BP 131/75; PULSE 98; O2SAT 98
[2023-11-04 09:34] LABS: Basophils % 1.1 %; Hematocrit 43.1 % (36-47); Lymphocytes # 0.4 10^3/uL (0.8-4.8); Lymphocytes % 15.4 %; Mean Corpuscular HGB Conc 33.2 g/dL (30-55); Mean Corpuscular Hemoglobin 30.4 pg (27-33); Mean Corpuscular Volume 91.7 fl (85-98); Mean Platelet Volume 9.1 fL (7.4-10.4); Monocytes # 0.3 10^3/uL (0.2-0.9); Monocytes % 10.7 %; Neutrophils # 2.03 10^3/uL (1.8-7.7); Neutrophils % 72.4 %; Nucleated Red Blood Cells % 0 %; Platelet Count 266 10^3/cmm (157-399); Red Cell Distribution Width 12.9 % (12.1-15.1)
[2023-11-04 09:47] LABS: Alanine Aminotransferase 11 U/L (0-33); Albumin Level 4.5 g/dL (3.5-5.2); Alkaline Phosphatase 72 U/L (35-105); Aspartate Amino Transferase 14 U/L (0-32); Blood Urea Nitrogen 6 mg/dL (6-20); Calcium 9.2 mg/dL (8.5-10.5); Carbon Dioxide 24 mmol/L (22-29); Chloride 102 mmol/L (98-107); Creatinine Clr Calc Pharmacy 82.6524; Glomerular Filtration Rate 88.2 mL/min (90-130); Glucose 93 mg/dL (65-115); Lipase 25 U/L (13-60); Osmolality Calculated 283 mOsm/kg (285-295); Sodium 138 mmol/L (136-145); Total Bilirubin 0.3 mg/dL (0.15-1.2); Total Protein 7.5 g/dL (6.6-8.7)
--- NOTE | 2023-11-04 09:48 | CTR_ITS ---
PROCEDURE INFORMATION: Exam: CT Abdomen And Pelvis With Contrast Exam date and time: 11/04/2023 9:58 AM Age: 53 years old Clinical indication: Abdominal pain; Localized; Right upper quadrant (ruq); Additional info: Abd pain TECHNIQUE: Imaging protocol: Computed tomography of the abdomen and pelvis with contrast. Radiation optimization: All CT scans at this facility use at least one of these dose optimization techniques: automated exposure control; mA and/or kV adjustment per patient size (includes targeted exams where dose is matched to clinical indication); or iterative reconstruction. Contrast material: OMNI 350; Contrast volume: 75 ml; Contrast route: INTRAVENOUS (IV); COMPARISON: CT abdomen pelvis w con* [id number] 05/21/2017 10:41 AM RADIATION DOSE METRICS: Total DLP (mGy-cm): 309.6 FINDINGS: Lungs: Visualized lung bases are clear. Liver: Subcentimeter hypoattenuating lesion in the left hepatic lobe, too small to further characterize, likely cyst. Gallbladder and bile ducts: The gallbladder is unremarkable. No biliary ductal dilatation. Pancreas: The pancreas is unremarkable. Spleen: The spleen is unremarkable. Adrenal glands: The adrenal glands are unremarkable. Kidneys and ureters: Kidneys are normal. No hydronephrosis or nephrolithiasis. Stomach and bowel: Nonobstructive bowel-gas pattern. Appendix: No evidence of acute appendicitis. Intraperitoneal space: No significant free fluid in the abdomen or pelvis. No extraluminal free air. Vasculature: Mild scattered calcific disease of the abdominal aorta and its major branches. No abdominal aortic aneurysm. Lymph nodes: No suspicious lymphadenopathy. Urinary bladder: Urinary bladder is within normal limits. Reproductive: Uterus is absent. Bones/joints: No acute osseous findings. Soft tissues: Visualized superficial soft tissues are within normal limits. CT/CT abdomen pelvis w con* [id number] IMPRESSION: No acute findings in the abdomen/pelvis.
[2023-11-04 09:55] LABS: Lactic Sepsis W/Reflex 0.7 mmol/L (0.5-2.2)
[2023-11-04 10:00] LABS: Add Urine Microscopic? YES; Bilirubin Urine Neg (Negative); Blood Urine Trace (Negative); Glucose Urine UA Norm (Normal); Ketones Urine 2+ (Negative); Leukocyte Esterase Urine Negative (Negative); Nitrate Urine Negative (Negative); Protein Urine Neg (Negative); Specific Gravity, Urine 1.015 (1.005-1.030); Urine Appearance Clear (CLEAR); Urine Color Yellow (Yellow); Urobilinogen Urine Norm (Negative); pH Urine 7 (5-7)
[2023-11-04 10:01] LABS: Add Urine Culture? No; Amorphous Sediment Urine 1+ /hpf; Bacteria Urine 1+ /hpf; RBC Urine RARE /hpf (0-2); Squamous Epithelial Cell Urine 0-4 /hpf (0-5); WBC Urine 0-4 /hpf (0-5)
[2023-11-04] MEDS: iohexol 350 mg/mL 500 mL Btl (per mL) IV (10:01)
[2023-11-04 10:32] VITALS: BP 127/74; PULSE 87; O2SAT 95
[2023-11-04 12:37] VITALS: BP 127/74; PULSE 87; RESP 16; TEMP 37; O2SAT 95
== END 2023-11-04 12:40 | disposition home or self-care (01) ==
PROVIDERS: Emergency Provider Family Medicine
DX: K52.9 Noninfective gastroenteritis and colitis, unspecified (principal)
CPT/HCPCS: 36415; 74177; 80053; 81001; 83605; 83690; 85025; 96360; 96361; 99285; J7030; Q9967

== ENCOUNTER 2024-02-07 08:34 | Emergency (ER) | payer BC, SELFPAY ==
[2024-02-07] VITALS (48 sets, daily range): BP systolic 105–135; BP diastolic 45–89; PULSE 49–90; RESP 10–31; TEMP 36.7; O2SAT 93–100; BMI 18.6
--- NOTE | 2024-02-07 08:42 | XR_ITS ---
WS: [id number] Examination: XR chest 1V portable [id number] Reason for Exam: dyspnea/cough Date: 02/07/2024 Comparison: 07/11/2019 Findings: The cardiomediastinal silhouette is within normal limits. The lungs are hyperinflated There is no pulmonary edema or large pleural effusion. There is no dense consolidative change. XR/XR chest 1V portable [id number] IMPRESSION: The lungs are hyperinflated. No acute lung process is seen.
--- NOTE | 2024-02-07 08:45 | ECG_ITS ---
[facility] Test Date: 2024-02-07 Pat Name: Belkis Oconnell Department: Room: Gender: Female Branch Manager Trainee: : 1970 Requested By: Louis Guaman Order Number: [id number] MD: Shai Pacheco M.D. Measurements Intervals [place] Rate: 78 P: 79 NV: 136 QRS: 85 QRSD: 86 T: 64 QT: 368 QTc: 420 Interpretive Statements SINUS RHYTHM WITH SINUS ARRHYTHMIA MODERATE ST DEPRESSION [0.05+ mV ST DEPRESSION] Compared to ECG 11/03/2020 12:04:39 ST (T wave) deviation now present T-wave abnormality no longer present Possible ischemia no longer present Electronically Signed On 02-07-2024 14:44:33 CDT by Shai Pacheco M.D. [id number]
--- NOTE | 2024-02-07 09:11 | ED_ITS ---
HPI - Weakness 2 General: Chief complaint: Weakness Stated complaint: weak/dizzy Time Seen by Provider: 02/07/24 08:42 History of Present Illness: 53-year-old female presents to the [facility] ency room with feeling dizzy. She is states that she has a what she calls episodes whenever she eats she feels drunk she feels lightheaded dizzy gets numbness and tingling sensations vision changes she will feel like she is going to pass out she says in the last couple weeks she has had a couple of drinks syncopal episodes associated with it. She will get some mild chest pressure and palpitations but no sharp chest pain no radiation of the discomfort. At times she has difficulty with swallowing and feels like things get stuck. She has no history of esophageal food impactions. She denies any diaphoresis no head trauma. She has had this intermittently for the last couple of years but it has become more noticeable recently. No hematochezia melena hematemesis or coffee-ground emesis Associated symptoms: Reports nausea and syncope; Denies chest pain, chills, dysuria or fever(s) Review of Systems 2 Const: Denies: fever(s) or chills Card: Reports: palpitations and syncope; Denies: chest pain Resp: Denies: dyspnea GI: Reports: abdominal pain (Epigastric), nausea and dysphagia : Denies: dysuria, urinary frequency or urinary urgency Musc: Denies: neck pain or back pain Skin/Breast: Denies: rash PFSH ED 2 PFSH: Medical History Nephrolithiasis No pertinent past medical history neghx: htn,dm,thyroid,dvt/pe PCP: Seizure Surgical History History of hysterectomy (~02/22/23) CLEOPATRA HAILE LOA performed by Naun at [facility] for CPP, dyspareunia, AUB History of Family History Father Cancer Grandfather Cancer Lung disease Hypertension Heart disease Grandmother Diabetes Hypertension High cholesterol Heart disease Mother Thyroid disease Hypertension Denies family history of Colon cancer Ovarian cancer Breast cancer Uterine cancer Stroke Social History Quit status (tobacco/nicotine): not considering quitting Second hand smoke exposure: No Alcohol intake: never Substance/Drug Use: never Lives independently: Yes Household members: spouse Marital status: Current occupational status: employed Do you think of yourself as: Straight/Heterosexual Current gender identity: Female Physical Exam 2 Const: GENERAL APPEARANCE: cooperative ORIENTATION/CONSCIOUSNESS: Yes awake, Yes oriented to person, Yes oriented to place and Yes oriented to time HENMT: COMMON NORMALS: normocephalic, atraumatic and hearing grossly normal bilaterally HEAD & SCALP: normocephalic and atraumatic Resp: COMMON NORMALS: normal respiratory effort, No retractions, No use of accessory muscles and clear to auscultation bilaterally AUSCULTATION: clear to auscultation bilaterally Cardio: COMMON NORMALS: regular rate, regular rhythm and No murmurs present (Cardio) RATE: regular rate RHYTHM: regular rhythm GI: COMMON NORMALS: Soft to palpation and No hepatosplenomegaly present A USCULTATION: Yes normoactive bowel sounds PALPATION: Yes Soft to palpation, No Tenderness to palpation present (GI), No Guarding due to palpation present (GI) and Yes No hepatosplenomegaly present Extremity: COMMON NORMALS: normal to inspection, capillary refill normal, no clubbing, cyanosis or edema, no calf tenderness and no pedal edema Neuro: SENSORIUM/ORIENTATION: Yes oriented to person, Yes oriented to place and Yes oriented to time Skin: COMMON NORMALS: no rashes or lesions noted GENERAL SKIN EXAM: no rashes or lesions noted Course 2 Vital Signs: Vital signs: Vital Signs Temperature 98.0 F 02/07/24 08:42 Pulse Rate 87 02/07/24 13:16 Respiratory Rate 19 H 02/07/24 12:50 Blood Pressure 126/76 02/07/24 13:16 Pulse Oximetry 98 02/07/24 13:16 Oxygen Delivery Me thod Room Air 02/07/24 08:42 MDM - Weakness Medical Decision Making Patient has had no further episodes. I did give her some fluids laboratory test reviewed no significant findings CT did not show any significant abnormalities. She has had several syncopal episodes as an outpatient past we will set her up for an echocardiogram as an outpatient have her follow-up with primary care additional set of her surgery to have an EGD done to evaluate her stomach. She was recommended to start on PPI. Medical Records I reviewed the patient's medical records. Lab Data I reviewed the patient's lab results. 02/07/24 08:50 02/07/24 08:50 Radiology Impressions Chest X-Ray 02/07/24 08:42 IMPRESSION: The lungs are hyperinflated. No acute lung process is seen. Abdomen/Pelvis CT 02/07/24 10:47 IMPRESSION: 1. No acute abdominal or pelvic abnormalities are identified. 2. No free fluid or free air. 3. Moderate diffuse constipation. 4. Normal appendix. Head CT 02/07/24 10:48 IMPRESSION: Stable noncontrast head CT since 11/03/2020. No acute intracranial findings. Laboratory Results WBC 4.63 10^3/uL (3.29-11.43) 02/07/24 08:50 RBC 4.71 10^6/uL (3.85-5.65) 02/07/24 08:50 Hgb 14.20 g/dL (11.27-16.99) 02/07/24 08:50 Hct 43.7 % (36-47) 02/07/24 08:50 MCV 92.8 fl (85-98) 02/07/24 08:50 MCH 30.1 pg (27-33) 02/07/24 08:50 MCHC 32.5 g/dL (30-55) 02/07/24 08:50 RDW 13.6 % (12.1-15.1) 02/07/24 08:50 Plt Count 284 10^3/cmm (157-399) 02/07/24 08:50 MPV 8.7 fL (7.4-10.4) 02/07/24 08:50 Neut % (Auto) 46.2 % 02/07/24 08:50 Lymph % (Auto) 42.8 % 02/07/24 08:50 Alcorn % (Auto) 8.6 % 02/07/24 08:50 Eos % (Auto) 1.3 % 02/07/24 08:50 Baso % (Auto) 0.9 % 02/07/24 08:50 Neut # (Auto) 2.14 10^3/uL (1.8-7.7) 02/07/24 08:50 Lymph # (Auto) 2.0 10^3/uL (0.8-4.8) 02/07/24 08:50 Alcorn # (Auto) 0.4 10^3/uL (0.2-0.9) 02/07/24 08:50 Eos # (Auto) 0.1 10^3/uL (0.0-0.8) 02/07/24 08:50 Baso # (Auto) 0.0 10^3/uL (0.0-0.1) 02/07/24 08:50 Nucleated RBC % (auto) 0 % 02/07/24 08:50 Nucleated RBCs # 0.0 /100WBC 02/07/24 08:50 Sodium 141 mmol/L (136-145) 02/07/24 08:50 Potassium 3.9 mmol/L (3.5-5.1) 02/07/24 08:50 Chloride 105 mmol/L (98-107) 02/07/24 08:50 Carbon Dioxide 24 mmol/L (22-29) 02/07/24 08:50 Anion Gap 15.9 (5-19) 02/07/24 08:50 BUN 8 mg/dL (6-20) 02/07/24 08:50 Creatinine 0.6 mg/dL (0.5-0.9) 02/07/24 08:50 GFR Calculation 105.4 mL/min (90-130) 02/07/24 08:50 Glucose 115 mg/dL (65-115) 02/07/24 08:50 Calculated Osmolality 291 mOsm/kg (285-295) 02/07/24 08:50 Calcium 8.6 mg/dL (8.5-10.5) 02/07/24 08:50 Total Bilirubin 0.3 mg/dL (0.15-1.2) 02/07/24 08:50 AST 15 U/L (0-32) 02/07/24 08:50 ALT 14 U/L (0-33) 02/07/24 08:50 Alkaline Phosphatase 62 U/L (35-105) 02/07/24 08:50 Total Protein 6.9 g/dL (6.6-8.7) 02/07/24 08:50 Albumin 4.4 g/dL (3.5-5.2) 02/07/24 08:50 Globulin 2.5 g/dL (1.3-4.6) 02/07/24 08:50 Urine Color Yellow (Yellow) 02/07/24 09:45 Urine Appearance Clear (CLEAR) 02/07/24 09:45 Urine pH 7.5 (5-7) 02/07/24 09:45 Ur Specific Thurmond 1.005 (1.005-1.030) 02/07/24 09:45 Urine Protein Negative (Negative) 02/07/24 09:45 Urine Glucose (UA) Negative (Normal) 02/07/24 09:45 Urine Ketones Negative (Negative) 02/07/24 09:45 Urine Blood Negative (Negative) 02/07/24 09:45 Urine Nitrate Negative (Negative) 02/07/24 09:45 Urine Bilirubin Negative (Negative) 02/07/24 09:45 Urine Urobilinogen 0.2 mg/dL (Negative) 02/07/24 09:45 Ur Leukocyte Esterase Negative (Negative) 02/07/24 09:45 Amorphous Sediment Not Reportable 02/07/24 09:45 All radiology interpretation(s) finalized by discharge Discharge Plan Discharge Patient Disposition: Home Clinical Impression: Syncope, Abdominal pain Condition: Stable Prescriptions: New Protonix 40 mg tablet,delayed release (DR/EC) 40 mg PO DAILY 28 Days Qty: 30 0RF No Action azithromycin 250 mg tablet See Rx Instructions PO .COMPLEX Qty: 6 0RF Rx Instructions: For 250 mg dose pack: take 500 mg today (day 1), then 250 mg for 4 days (days 2-5) PO prednisone 20 mg tablet 40 mg PO DAILY 5 Days Qty: 10 0RF estradiol 0.5 mg tablet 1 mg PO QDAY Qty: 90 3RF acetaminophen 325 mg capsule 325 mg PO Q4H PRN (Reason: fever or pain) Qty: 60 0RF promethazine 25 mg tablet 25 mg PO Q6H PRN (Reason: nausea and vomiting) Qty: 20 0RF Discharge Orders: Discharge ED (Routine); Ordered 02/07/24 Ordered By: Louis Sandhu Discharge Diet: Usual diet Discharge Activity: Limit activity as instructed Patient Instructions: Abdominal Pain (ED), Opioid Safety, Pain Management Activity Restrictions/Additional Instructions: Thank you for choosing [facility] for your healthcare needs today. It is very important that you follow up as instructed or that you return to the Emergency Department should you have concerns or if your condition changes or worsens in any way. You were seen in the emergency room reporting having had episodes of stomach upset after eating and feeling nauseated generalized not feeling well. Your CT of your abdomen did not show significant abnormality. We did give you IV fluids. Vital signs sitting standing and laying were normal. Your CT of your head was also normal. Recommend that you follow-up with general surgery for a scope of your stomach. Additionally we will set up an outpatient echocardiogram. Started on pantoprazole recommend 1 tablet twice a day for 10 days then once daily. Coding Level of Care Code ED Otr Flatbed Driver for Chg Fwd Related Data Previous Rx's Medication Instructions Recorded acetaminophen 325 mg capsule 325 mg PO Q4H PRN fever or pain 02/23/23 #60 caps estradiol 0.5 mg tablet 1 mg (2 x 0.5 mg) PO QDAY #90 tabs 05/03/23 promethazine 25 mg tablet 25 mg PO Q6H PRN nausea and 11/04/23 vomiting #20 tabs azithromycin 250 mg tablet See Rx Instructions PO .COMPLEX #6 11/08/23 tabs prednisone 20 mg tablet 40 mg (2 x 20 mg) PO DAILY 5 days 11/08/23 #10 tabs pantoprazole 40 mg tablet,delayed 40 mg PO DAILY 4 weeks #30 tabs 02/07/24 release (Protonix) Allergies Allergy/AdvReac Type Severity Reaction Status Date / Time No Known Allergies Allergy Verified 11/08/23 15:02
[2024-02-07 09:18] LABS: Basophils % 0.9 %; Eosinophils # 0.1 10^3/uL (0.0-0.8); Eosinophils % 1.3 %; Hematocrit 43.7 % (36-47); Lymphocytes % 42.8 %; Mean Corpuscular HGB Conc 32.5 g/dL (30-55); Mean Corpuscular Hemoglobin 30.1 pg (27-33); Mean Corpuscular Volume 92.8 fl (85-98); Mean Platelet Volume 8.7 fL (7.4-10.4); Monocytes # 0.4 10^3/uL (0.2-0.9); Monocytes % 8.6 %; Neutrophils # 2.14 10^3/uL (1.8-7.7); Neutrophils % 46.2 %; Nucleated Red Blood Cells % 0 %; Platelet Count 284 10^3/cmm (157-399); Red Blood Count 4.71 10^6/uL (3.85-5.65); Red Cell Distribution Width 13.6 % (12.1-15.1); White Blood Count 4.63 10^3/uL (3.29-11.43)
[2024-02-07 09:33] LABS: Alanine Aminotransferase 14 U/L (0-33); Albumin Level 4.4 g/dL (3.5-5.2); Alkaline Phosphatase 62 U/L (35-105); Anion Gap 15.9 (5-19); Aspartate Amino Transferase 15 U/L (0-32); Blood Urea Nitrogen 8 mg/dL (6-20); Calcium 8.6 mg/dL (8.5-10.5); Carbon Dioxide 24 mmol/L (22-29); Chloride 105 mmol/L (98-107); Creatinine Clr Calc Pharmacy 95.4745; Globulin 2.5 g/dL (1.3-4.6); Glomerular Filtration Rate 105.4 mL/min (90-130); Glucose 115 mg/dL (65-115); Osmolality Calculated 291 mOsm/kg (285-295); Potassium 3.9 mmol/L (3.5-5.1); Sodium 141 mmol/L (136-145); Total Bilirubin 0.3 mg/dL (0.15-1.2); Total Protein 6.9 g/dL (6.6-8.7)
[2024-02-07 10:07] LABS: Charge for UA Resulting for Rev
[2024-02-07 10:11] LABS: Bilirubin Urine Negative (Negative); Blood Urine Negative (Negative); Glucose Urine UA Negative (Normal); Ketones Urine Negative (Negative); Leukocyte Esterase Urine Negative (Negative); Nitrate Urine Negative (Negative); Protein Urine Negative (Negative); Specific Gravity, Urine 1.005 (1.005-1.030); Urine Appearance Clear (CLEAR); Urine Color Yellow (Yellow); Urobilinogen Urine 0.2 mg/dL (Negative); pH Urine 7.5 (5-7)
--- NOTE | 2024-02-07 10:47 | CT_ITS ---
WS: [id number] CT ABDOMEN AND PELVIS WITH CONTRAST HISTORY: abd pain TECHNIQUE: Imaging performed of the abdomen and pelvis with IV contrast. Single phase imaging of the abdomen. Coronal and sagittal reformats are submitted. All CT scans at [facility] use at [facility] one of these dose optimization techniques: automated exposure control; mA and/or kV adjustment per patient size (includes targeted exams where dose is matched to clinical indication); or iterative re construction. IV CONTRAST: Omnipaque 350; 100 mL IV. Oral contrast: No DLP: 345.10 mGy.cm COMPARISON: 11/04/2023 Lower thorax: Lung bases are clear. Heart is normal size. No hiatal hernia. Liver/biliary system: Mildly elongated liver is probably a Kolby's lobe. Subcapsular cyst LEFT lobe measures 6 mm. Mild focal fatty sparing along the falciform ligament. No intrahepatic duct dilatation . Gallbladder: Normal. No gallstones or wall thickening. No pericholecystic fluid. Pancreas: Normal size pancreas and pancreatic duct. No adjacent inflammation. Spleen: Normal size spleen. No mass or infarct. Adrenal glands: Normal. Right kidney: Normal. Left kidney: Normal. Aorta: Normal. Lymphadenopathy: None. Free fluid: None. GI tract: Nondistended stomach. No small bowel obstruction. Moderate constipation throughout the enti re colon. The appendix is normal. No significant diverticular disease. Abdominal wall: Unremarkable abdominal wall. No hernia. Pelvis: No free fluid or adenopathy within the pelvis. Bones: Unremarkable. CT/CT abdomen pelvis w con* [id number] IMPRESSION: 1. No acute abdominal or pelvic abnormalities are identified. 2. No free fluid or free air. 3. Moderate diffuse constipation. 4. Normal appendix.
--- NOTE | 2024-02-07 10:48 | CT_ITS ---
WS: [id number] CT HEAD NONCONTRAST HISTORY: Syncope TECHNIQUE: Contiguous axial imaging performed through the brain in 2.5 mm imaging. Bone and soft tiss ue windows. Sagittal and coronal reformats reviewed. All CT scans at [facility] use at least one of these dose optimization techniques: automated exposure control; mA and/or kV adjustment per pa tient size (includes targeted exams where dose is matched to clinical indication); or iterative recon struction. DLP: 1052.48 mGy.cm COMPARISON: 11/03/2020 No acute intracranial hemorrhage, midline shift or mass effect. No atrophy or prior infarcts or herniation. Ventricles: Normal size with no hydrocephalus. Paranasal sinuses: As visualized are clear. Mastoid air cells: Well pneumatized. Calvarium and scalp: Skull is intact with no soft tissue edema or swelling. Probable sebaceous cyst i n the RIGHT frontal scalp. CT/CT head wo con* [id number] IMPRESSION: Stable noncontrast head CT since 11/03/2020. No acute intracranial findings.
[2024-02-07] MEDS: iohexol 350 mg/mL 500 mL Btl (per mL) IV (11:02)
[2024-02-07] MEDS: sodium chloride 0.9% 1,000 ML 999 ML IV (11:28)
--- NOTE | 2024-02-07 17:56 | DCPLANNER ---
messaged gen surg for er f/u, faxed order for echo to scheduling.
== END 2024-02-07 13:15 | disposition home or self-care (01) ==
PROVIDERS: Emergency Provider Family Medicine
DX: R55 Syncope and collapse (principal); R10.9 Unspecified abdominal pain
CPT/HCPCS: 70450; 71045; 74177; 80053; 81003; 81015; 85025; 93005; 99285; J7030

== ENCOUNTER 2024-02-12 13:12 | Outpatient (CLI) | payer BC, SELFPAY ==
--- NOTE | 2024-02-12 13:16 | USCV_ITS ---
Belkis Oconnell Age: 53 Gender: F : 1970 Exam Date: 02/12/2024 13:22 Ordering Phys: Louis Sandhu DO Technologist: AC [place]am [place] [facility] [place]: SYNCOPE BP: 14 / 82 HR: 71 Rhythm: Sinus Technical Quality: Adequate MEASUREMENTS (Male / Female) Normal Values 2D ECHO LV Diastolic Diameter PLAX 3.5 cm 4.2 - 5.9 / 3.9 - 5.3 cm IVS Diastolic Thickness 0.7 cm 0.6 - 1.0 / 0.6 - 0.9 cm IVS Systolic Thickness 1.6 cm LVPW Diastolic Thickness 1.8 cm 0.6 - 1.0 / 0.6 - 0.9 cm LVPW Systolic Thickness 2.1 cm LVOT Diameter 2.0 cm LV Ejection Fraction 2D Teich 61.4 % LV Ejection Fraction MOD 4C 52.4 % LV Ejection Fraction MOD 2C 62.8 % LV Ejection Fraction 2C AL 63.9 % LA Diameter 2.3 cm RA Systolic Volume 4C AL 7.3 ml RA Systolic Volume 4C MOD 6.9 ml LA Sys Volume AL 15.4 cm cubed LA Sys Volume Index AL 10.2 cm cubed/m squared Aorta at Sinotubular Diameter 1.5 cm IVC Diameter 1.6 cm M-MODE LA Ao Ratio MM 0.5 AV Cusp Separation MM 1.2 cm DOPPLER AV Peak Velocity 119.0 cm/s LVOT Peak Velocity 104.0 cm/s AV Area Cont Eq vti 3.3 cm squared AV Area Cont Eq pk 2.7 cm squared MV Peak Velocity 93.0 cm/s MV Area PHT 3.6 cm squared Mitral E to A Ratio 1.2 TR Peak Velocity 243.0 cm/s TR Peak Gradient 23.6 mmHg TR Mean Velocity 193.0 cm/s TR Mean Gradient 15.9 mmHg TR Velocity Time Integral 79.2 cm TV Peak E Velocity 59.0 cm/s Right Atrial Pressure 3.0 mmHg Pulmonary Artery Systolic Pressu 26.6 mmHg FINDINGS Left Ventricle Normal left ventricular size, systolic function and wall thickness, with no regional wall motion abnormalities. Left ventricular ejection fraction is estimated at 55 %. Grade II/IV diastolic dysfunction, moderately elevated filling pressures. Right Ventricle The right ventricle is normal in size and function. Right Atrium The right atrium is normal in size. Left Atrium The left atrium is normal in size. Mitral Valve Structurally normal mitral valve without significant stenosis or prolapse. There is no mitral regurgitation. Aortic Valve Structurally normal aortic valve without significant sclerosis or stenosis. There is trace aortic regurgitation. Tricuspid Valve Structurally normal tricuspid valve without significant stenosis or regurgitation. Pulmonary artery systolic pressure is normal. Pulmonic Valve Structurally normal pulmonic valve without significant stenosis. There is no pulmonic regurgitation. Pericardium Normal pericardium without effusion. Aorta Normal ascending aorta dimension. IVC The inferior vena cava appears normal. CONCLUSIONS Normal left ventricular size, systolic function and wall thickness, with no regional wall motion abnormalities. Left ventricular ejection fraction is estimated at 55 %. Grade II/IV diastolic dysfunction, moderately elevated filling pressures. No significant valve abnormalities. There is no pericardial effusion. Right atrial pressure is around 5 mm of mercury. Rashmi Ramos MD (Electronically Signed) Final Date: 12 February 2024 16:22 S
== END 2024-02-12 13:13 | disposition home or self-care (01) ==
LOC: RAD 13:13
PROVIDERS: Visit Provider Family Medicine
DX: I50.30 Unspecified diastolic (congestive) heart failure (principal); I50.1 Left ventricular failure, unspecified; R55 Syncope and collapse
CPT/HCPCS: 93306

== ENCOUNTER 2024-02-19 06:18 | Day surgery (SDC) | payer BC, SELFPAY ==
[2024-02-19 06:43] VITALS: BMI 18.9
[2024-02-19 06:45] VITALS: BP 122/76; PULSE 76; RESP 18; TEMP 36.6; O2SAT 99
[2024-02-19] MEDS: sodium chloride 0.9% 1,000 ML 30 ML IV (06:52)
--- NOTE | 2024-02-19 07:02 | W.PM.OPSFHP ---
Same Day Surgery H&P Indication for Procedure/HPI DATE OF PROCEDURE: February 19, 2024 CHIEF COMPLAINT/INDICATIONFOR SURGICAL PROCEDURE: PUD PREOP DIAGNOSIS: PUD PLANNED PROCEDURE: Operation Date: 02/19/24 07:20 Proposed Procedures p EGD 84528, K27.9(Not Applicable) - Carlos Gonzalez MD Medications/Allergies* Allergies/Adverse Reactions Allergy/AdvReac Type Severity Reaction Status Date / Time No Known Allergies Allergy Verified 02/19/24 06:41 Current Medications: Generic Name Dose Route Start Last Admin Trade Name Freq PRN Reason Stop Dose Admin Sodium Chloride 1,000 mls @ 30 mls/hr 02/19/24 06:45 02/19/24 06:52 Sodium Chloride 0.9% IV 30 mls/hr .Q24H SKYLA Administration Pertinent History/Comorbid Conditions* Medical History (Updated 02/15/24 @ 09:52 by Carlos Gonzalez MD) Nephrolithiasis No pertinent past medical history neghx: htn,dm,thyroid,dvt/pe PCP: Seizure Surgical History (Updated 03/07/23 @ 10:29 by Joan Kauffman APN, WHJOHNY) History of hysterectomy (~02/22/23) LAVH, BSO, SASHA performed by Naun at [facility] for CPP, dyspareunia, AUB History of Family History (Updated 01/05/23 @ 13:45 by Shakila Schulz [facility]) Diabetes Grandmother High cholesterol Grandmother Heart disease Grandfather Grandmother Lung disease Grandfather Cancer Father Grandfather Hypertension Grandfather Grandmother Mother Thyroid disease Mother Denies family history of Colon cancer Ovarian cancer Breast cancer Uterine cancer Stroke Social History Smoking and tobacco/nicotine status: current every day tobacco/nicotine user cigarettes Packs smoked per day: 1 Years cigarettes smoked: 35 Quit status (tobacco/nicotine): not considering quitting Second hand smoke exposure: No Alcohol intake: never Substance/Drug Use: never Lives independently: Yes Household members: spouse Marital status: Current occupational status: employed Do you think of yourself as: Straight/Heterosexual Current gender identity: Female Pertinent Exam Findings alert, oriented x 3, clear to auscultation bilaterally, regular rate & rhythm and procedure specific exam findings Abdomen soft, NT, ND Recommendations Surgery/Procedure today Other Plans: EGD today Coding Level of Care Code Acute Code for Chg Fwd Time Spent (min) 30
--- NOTE | 2024-02-19 07:26 | ANES.PREANE2 ---
Pre-Anesthetic Assessment Height/Weight: Height 1.65 m Weight 51.71 kg Temp Pulse Resp BP Pulse Ox O2 Del Method 97.2 F L 77 16 122/70 93 Room Air 02/19/24 07:45 02/19/24 07:45 02/19/24 07:45 02/19/24 07:45 02/19/24 07:45 02/19/24 07:45 Preop Diagnosis: PUD Operation Date: 02/19/24 07:20 Proposed Procedures p EGD 05051, K27.9(Not Applicable) - Carlos Gonzalez MD Familial anesthetic complications: none Was Beta Miesha taken within 24 hours: N/A Was Clonidine taken within 24 hours: N/A Last intake: Intake Last Liquid Date 02/18/24 Last Liquid Time 21:00 Last Solid Date 02/07/24 Last Solid Time 21:00 Social Tobacco and No alcohol Exam alert and oriented x 3 Airway Submandibular: within normal limits Cervical ROM: within normal limits Mallampati: Class I Dentition: false History/ROS No significant history except as noted Pulmonary Asthma and Chronic Obstructive Pulmonary Disease CV/HEM Hypertension chest pain last week, went to ER: CXR, EKG, ECHO, awaiting cardiologst appt. no addition chest pain, did not recieve nitro or morphine or oxygen. None reported Hepatic None reported GI Gastroesophageal Reflux Disease Metabolic None reported Musc/skel None reported Neuropsych None reported Anesthetic Plan ASA status: 3 Anesthesia: Anesthesia Evaluation, General and MAC Medications/Allergies Home Medications Medication Instructions Recorded Confirmed Last Taken Type estradiol 0.5 mg tablet 1 mg (2 x 0.5 mg) PO QDAY #90 tabs 05/03/23 02/19/24 02/18/24 Rx pantoprazole 40 mg tablet,delayed 40 mg PO BID 6 weeks #84 tabs 02/15/24 02/19/24 02/18/24 Rx release (Protonix) Allergies Allergy/AdvReac Type Severity Reaction Status Date / Time No Known Allergies Allergy Verified 02/19/24 06:41 Current Medications Generic Name Dose Route Start Last Admin Trade Name Freq PRN Reason Stop Dose Admin Sodium Chloride 1,000 mls @ 30 mls/hr 02/19/24 06:45 02/19/24 06:52 Sodium Chloride 0.9% IV 30 mls/hr .Q24H SKYLA Administration PFSH Anesthesia Medical History Nephrolithiasis No pertinent past medical history neghx: htn,dm,thyroid,dvt/pe PCP: Seizure Surgical History History of hysterectomy (~02/22/23) LAVH, BSO, SASHA performed by Naun at [facility] for CPP, dyspareunia, AUB History of Family History Father Cancer Grandfather Cancer Lung disease Hypertension Heart disease Grandmother Diabetes Hypertension High cholesterol Heart disease Mother Thyroid disease Hypertension Denies family history of Colon cancer Ovarian cancer Breast cancer Uterine cancer Stroke Social History Smoking and tobacco/nicotine status: current every day tobacco/nicotine user cigarettes Packs smoked per day: 1 Years cigarettes smoked: 35 Quit status (tobacco/nicotine): not considering quitting Second hand smoke exposure: No Alcohol intake: never Substance/Drug Use: never Lives independently: Yes Household members: spouse Marital status: Current occupational status: employed Do you think of yourself as: Straight/Heterosexual Current gender identity: Female Data Anesthesia Cardiac Studies: Echocardiogram 02/12/24
[2024-02-19 07:45] VITALS: BP 122/70; PULSE 77; RESP 16; TEMP 36.2; O2SAT 93
[2024-02-19 08:01] VITALS: BP 112/78; PULSE 74; RESP 18; O2SAT 95
--- NOTE | 2024-02-19 08:11 | ANE.PACU2 ---
Inpatient post-anesthesia follow up: Airway intact: Yes Vital signs: Temperature 97.2 F Pulse Rate 74 Respiratory Rate 18 Blood Pressure 112/78 Pulse Oximetry 95 Oxygen Delivery Me thod Room Air Oxygen Flow Rate Fraction of Inspir ed Oxygen Hydration adequate: Yes Nausea and vomiting: No Pain level: 1 Mental status: Baseline
== END 2024-02-19 08:30 | disposition home or self-care (01) ==
PROVIDERS: PCP Family Medicine Adult Medicine; Visit Provider Student in an Organized Health Care Education/Training Program
PROC: 0DJ08ZZ Inspection of Upper Intestinal Tract, Via Natural or Artificial Opening Endoscopic (ICD-10-PCS; CPT 43235; principal; 2024-02-19 07:20)
DX: Z87.11 Personal history of peptic ulcer disease (principal); F17.210 Nicotine dependence, cigarettes, uncomplicated; J44.9 Chronic obstructive pulmonary disease, unspecified; I10 Essential (primary) hypertension; K21.9 Gastro-esophageal reflux disease without esophagitis; K29.50 Unspecified chronic gastritis without bleeding
CPT/HCPCS: 43239; 88305; 88342; J2704; J7030

== ENCOUNTER 2024-04-19 11:35 | Emergency (ER) | payer BC, SELFPAY ==
--- NOTE | 2024-04-19 11:38 | USR_ITS ---
PROCEDURE INFORMATION: Exam: US Duplex Left Lower Extremity Veins, Limited Exam date and time: 04/19/2024 11:51 AM Age: 53 years old Clinical indication: Edema, localized; Lower extremity, left; Additional info: Swelling TECHNIQUE: Imaging protocol: Real-time duplex ultrasound of the left extremity with 2-D grajeda scale, color Doppler flow and spectral waveform analysis including responses to compression and other maneuvers (when performed) with image documentation. Limited exam focused on the left lower extremity veins. COMPARISON: US pelvic complete* [id number] 11/26/2022 5:23 PM FINDINGS: Left deep veins: Unremarkable. The common femoral, femoral, proximal profunda femoral and popliteal veins as well as the visualized deep veins of the lower leg are patent without thrombus. Normal Doppler waveforms. Normal compressibility and/or augmentation response. Superficial veins: Greater saphenous vein at the saphenofemoral junction is patent without thrombus. Soft tissues: Unremarkable. US/[place] [id number] IMPRESSION: No evidence of deep vein thrombosis.
[2024-04-19 11:46] VITALS: BP 112/69; PULSE 87; RESP 16; TEMP 36.8; O2SAT 99; BMI 19.3
--- NOTE | 2024-04-19 12:52 | ED_ITS ---
HPI - Extremity Problem General: Chief complaint: Extremity Problem,Nontraumatic Stated complaint: Left leg pain (walk in clinic) Time Seen by Provider: 04/19/24 12:34 Source: patient Mode of arrival: ambulatory Limitations: no limitations History of Present Illness: 53-year-old female states she been havin g some left lower leg pain states she has a spot on her left lower leg where she feels a knot and its painful to touch. She denies any fever she seen urgent care and was sent here for rule out of a DVT. Associated symptoms: Deny chest pain, fever(s) or rash Related Data Previous Rx's Medication Instructions Recorded estradiol 0.5 mg tablet 1 mg (2 x 0.5 mg) PO QDAY #90 tabs 05/03/23 pantoprazole 40 mg tablet,delayed 40 mg PO BID 6 weeks #84 tabs 02/15/24 release (Protonix) Allergies Allergy/AdvReac Type Severity Reaction Status Date / Time No Known Allergies Allergy Verified 04/19/24 10:42 Review of Systems Const: Denies: fever(s), chills, body aches or change in appetite ENMT: Denies: throat pain or dental pain Card: Denies: chest pain Resp: Denies: dyspnea GI: Denies: abdominal pain, nausea, vomiting or diarrhea Musc: Reports: extremity pain; Denies: neck pain or back pain Skin/Breast: Denies: rash Neuro: Denies: headache(s) [facility] PFSH: Medical History Nephrolithiasis No pertinent past medical history neghx: htn,dm,thyroid,dvt/pe PCP: Seizure Surgical History History of hysterectomy (~02/22/23) CLEOPATRA HAILE, SASHA performed by Naun at [facility] for CPP, dyspareunia, AUB History of Family History Father Cancer Grandfather Cancer Lung disease Hypertension Heart disease Grandmother Diabetes Hypertension High cholesterol Heart disease Mother Thyroid disease Hypertension Denies family history of Colon cancer Ovarian cancer Breast cancer Uterine cancer Stroke Social History Smoking and tobacco/nicotine status: current every day tobacco/nicotine user cigarettes Packs smoked per day: 1 Years cigarettes smoked: 35 Quit status (tobacco/nicotine): not considering quitting Second hand smoke exposure: No Alcohol intake: never Substance/Drug Use: never Lives independently: Yes Household members: spouse Marital status: Current occupational status: employed Do you think of yourself as: Straight/Heterosexual Current gender identity: Female Physical Exam Const: COMMON NORMALS: no acute distress, patient oriented x3 and healthy appearing HENMT: COMMON NORMALS: normocephalic and atraumatic HEAD & SCALP: normocephalic and atraumatic Neck/C-Spine: COMMON NORMALS: full ROM and supple Chest: COMMONS NORMALS: normal inspection of the chest Resp: COMMON NORMALS: normal respiratory effort Cardio: COMMON NORMALS: regular rate RATE: regular rate Extremity: COMMON NORMALS: full ROM NARRATIVE EXTREMITY EXAM: Tender spot to left lower calf is likely a superficial thrombophlebitis no abscess no erythema distal pulses sensation intact Neuro: COMMON NORMALS: patient oriented x3, moves all extremities and no focal motor deficits Psych: COMMON NORMALS: mental status grossly normal, Normal thought process present and cooperative THOUGHT PROCESS: Normal thought process present Skin: COMMON NORMALS: no rashes or lesions noted and no wounds GENERAL SKIN EXAM: no rashes or lesions noted Course Vital Signs: Vital signs: Vital Signs Temperature 98.2 F 04/19/24 11:46 Pulse Rate 87 04/19/24 11:46 Respiratory Rate 16 04/19/24 11:46 Blood Pressure 112/69 04/19/24 11:46 Pulse Oximetry 99 04/19/24 11:46 Oxygen Delivery Me thod Room Air 04/19/24 11:46 MDM - Extremity (Nontraumatic) Medical Decision Making Patient presents for left lower leg pain likely a superficial thrombophlebitis ultrasound here showed no DVT patient stable for discharge follow-up PCP return if worsening Medical Records I reviewed the patient's medical records. Lab Data Radiology Impressions Venous Duplex 04/19/24 11:38 IMPRESSION: No evidence of deep vein thrombosis. All radiology interpretation(s) finalized by discharge Discharge Plan Discharge Patient Disposition: Home Clinical Impression: Superficial thrombophlebitis Condition: Stable Prescriptions: No Action pantoprazole [Protonix] 40 mg tablet,delayed release (DR/EC) 40 mg PO BID 42 Days Qty: 84 1RF estradiol 0.5 mg tablet 1 mg PO QDAY Qty: 90 3RF Discharge Orders: Discharge ED (Routine); Ordered 04/19/24 Ordered By: Nannette Wiley Referrals: Lefty Hernadez MD [Primary Care Provider] - Discharge Diet: Advance as tolerated Discharge Activity: Resume usual activity Patient Instructions: Superficial Thrombophlebitis (ED) Stand Alone Forms: Work/School Release Coding Level of Care Code ED Sprayer Operator for Ignacio Smith
[2024-04-19 12:58] VITALS: BP 118/73; PULSE 67; RESP 15; O2SAT 98
== END 2024-04-19 12:58 | disposition home or self-care (01) ==
PROVIDERS: Emergency Provider Emergency Medicine; PCP Family Medicine Adult Medicine
DX: I80.3 Phlebitis and thrombophlebitis of lower extremities, unspecified (principal); F17.210 Nicotine dependence, cigarettes, uncomplicated
CPT/HCPCS: 93971; 99284

== ENCOUNTER 2024-07-14 09:03 | Outpatient (CLI) | payer BC, SELFPAY ==
--- NOTE | 2024-07-14 09:22 | XR_ITS ---
WS: [id number] XR cervical spine 3V* [id number] REASON FOR EXAM: cervical pain with radiation FINDINGS: Normal cervical lordosis. Normal odontoid and no vertebral body compression or focal lesion. Minimal narrowing of the joint space with mild endplate sclerosis and osteophytosis at C5-C6 and C6-C7. XR/XR cervical spine 3V* [id number] IMPRESSION: Mild degenerative spondylosis as above.
== END 2024-07-14 09:04 | disposition home or self-care (01) ==
LOC: RAD 09:05
DX: M62.830 Muscle spasm of back (principal); K27.9 Peptic ulcer, site unspecified, unspecified as acute or chronic, without hemorrhage or perforation; M47.892 Other spondylosis, cervical region
CPT/HCPCS: 72040; 80053; 80061

== ENCOUNTER → 2024-10-28 08:42 | Outpatient (BNVA) | payer BC, SELFPAY | DX: R20.0 Anesthesia of skin (principal); R20.2 Paresthesia of skin | CPT/HCPCS: 80053 ==

== ENCOUNTER 2025-02-22 09:31 | Emergency (ER) | payer BC, SELFPAY ==
--- NOTE | 2025-02-22 09:34 | ECG_ITS ---
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 Measurements Intervals [place] Rate: 83 P: 81 TN: 125 QRS: 82 QRSD: 90 T: 60 QT: 374 QTc: 440 Interpretive Statements SINUS RHYTHM LEFT ATRIAL ENLARGEMENT [-0.15mV P-WAVE IN V1/V2] MODERATE ST DEPRESSION [0.05+ mV ST DEPRESSION] Compared to ECG 02/07/2024 08:45:25 Atrial abnormality now present Sinus arrhythmia no longer present ST (T wave) deviation still present Electronically Signed On 02-22-2025 17:40:27 CDT by Sabrina Savage M.D. [id number]
--- NOTE | 2025-02-22 09:34 | XRR_ITS ---
PROCEDURE INFORMATION: Exam: XR Chest Exam date and time: 02/22/2025 9:54 AM Age: 54 years old Clinical indication: Pain; Chest pressure; Additional info: Cp TECHNIQUE: Imaging protocol: Radiologic exam of the chest. Views: 1 view. COMPARISON: CR XR chest 1V portable [id number] 02/07/2024 9:01 AM FINDINGS: Lungs: Unremarkable. No consolidation. Pleural spaces: Unremarkable. No pleural effusion. No pneumothorax. Heart/Mediastinum: Unremarkable. No cardiomegaly. Bones/joints: Unremarkable. XR/XR chest 1V portable [id number] IMPRESSION: No acute findings.
[2025-02-22 09:36] VITALS: BP 108/68; PULSE 76; RESP 18; TEMP 36.7; O2SAT 97; BMI 19.1
--- NOTE | 2025-02-22 10:01 | ED_ITS ---
HPI - Chest Pain 2 General: Chief Complaint: Chest Pain Stated Complaint: chest pain, left side pain Time Seen by Provider: 02/22/25 09:34 Source: patient Mode of arrival: ambulatory Limitations: no limitations History of Present Illness: 54-year-old female who states she is hav ing some chest pain since 8 AM. She has been a pressure type pain states and seems to be in her back as well she states it is not a sharp pain or severe pain she rates it a 1 or 2 out of 10. Had some slight nausea. States has had episodes like this in the past. She denies any vomiting or diarrhea denies any fever Associated symptoms: Reports nausea; Deny abdominal pain, fever(s) or vomiting Related Data Previous Rx's ?Medication ?Instructions ?Recorded gabapentin 100 mg capsule 200 mg (2 x 100 mg) PO BID # 120 01/05/25 caps omeprazole 20 mg capsule,delayed 20 mg PO DAILY #30 ca ps 02/04/25 release Allergies Allergy/AdvReac Type Severity Reaction Status Date / Time ibuprofen Allergy Intermediate ADR-Gastrointestinal Verified 10/28/24 08:27 Upset Review of Systems 2 Const: Denies: fever(s), chills, body aches or change in appetite ENMT: Denies: throat pain Card: Reports: chest pain GI: Reports: nausea; Denies: abdominal pain or vomiting PFSH ED 2 PFSH: Medical History Screening mammogram for breast cancer Numbness and tingling in both hands Nephrolithiasis No pertinent past medical history neghx: htn,dm,thyroid,dvt/pe PCP: Seizure Surgical History History of hysterectomy (~02/22/23) MIC, BSO, SASHA performed by Naun at [facility] [place] for CPP, dyspareunia, AUB History of Family History Father Cancer Grandfather Cancer Lung disease Hypertension Heart disease Grandmother Diabetes Hypertension High cholesterol Heart disease Mother Thyroid disease Hypertension Denies family history of Colon cancer Ovarian cancer Breast cancer Uterine cancer Stroke Social History Smoking and tobacco/nicotine status: current every day tobacco/nicotine user cigarettes Packs smoked per day: 1 Years cigarettes smoked: 35 Quit status (tobacco/nicotine): not considering quitting Second hand smoke exposure: No Alcohol intake: never Substance/Drug Use: never Lives independently: Yes Household members: spouse Marital status: Current occupational status: employed Do you think of yourself as: Straight/Heterosexual Current gender identity: Female Physical Exam 2 Const: COMMON NORMALS: no acute distress, patient oriented x3 and healthy appearing HENMT: COMMON NORMALS: normocephalic and atraumatic HEAD & SCALP: n ormocephalic and atraumatic Eye: COMMON NORMALS: conjunctivae normal CONJUNCTIVA: Yes conjunctivae normal Neck/C-Spine: COMMON NORMALS: full ROM and supple Chest: COMMONS NORMALS: normal inspection of the chest Resp: COMMON NORMALS: normal respiratory effort, No retractions, No use of accessory muscles and clear to auscultation bilaterally AUSCULTATION: clear to auscultation bilaterally Cardio: COMMON NORMALS: regular rate, regular rhythm and No murmurs present (Cardio) RATE: regular rate RHYTHM: regular rhythm GI: COMMON NORMALS: Normal to inspection, nondistended, normoactive bowel sounds present, Soft to palpation, non-tender and no masses PALPATION: Yes Soft to palpation Extremity: COMMON NORMALS: normal to inspection and full ROM Neuro: COMMON NORMALS: patient oriented x3, moves all extremities and no focal motor deficits Psych: COMMON NORMALS: mental status grossly normal, Normal thought process present and cooperative THOUGHT PROCESS: Normal thought process present Skin: COMMON NORMALS: no rashes or lesions noted and no wounds GENERAL SKIN EXAM: no rashes or lesions noted Course 2 Vital Signs: Vital signs: Vital Signs Temperature 98.1 F 02/22/25 09:36 Pulse Rate 67 02/22/25 11:34 Respiratory Rate 19 H 02/22/25 11:34 Blood Pressure 144/83 02/22/25 11:34 Pulse Oximetry 99 02/22/25 11:34 Oxygen Delivery Me thod Room Air 02/22/25 09:36 MDM - Chest Pain Medical Decision Making Patient presents here with chest pain is atypical in nature she is pain-free currently she has no signs of aortic dissection pulmonary embolism or ACS. Initial repeat troponins here are negative heart score is 2. I discussed her findings with her and informed her she needs to follow-up with her PCP return if worsening she understands agrees to plan Medical Records I reviewed the patient's medical records. Lab Data I reviewed the patient's lab results. 02/22/25 10:01 02/22/25 10:01 Radiology Impressions Chest X-Ray 02/22/25 09:34 IMPRESSION: No acute findings. Laboratory Results WBC 4.25 10^3/uL (3.29-11.43) 02/22/25 10:01 RBC 4.16 10^6/uL (3.85-5.65) 02/22/25 10:01 Hgb 12.60 g/dL (11.27-16.99) 02/22/25 10:01 Hct 38.2 % (36-47) 02/22/25 10:01 MCV 91.8 fl (85-98) 02/22/25 10:01 MCH 30.3 pg (27-33) 02/22/25 10:01 MCHC 33.0 g/dL (30-55) 02/22/25 10:01 RDW 13.0 % (12.1-15.1) 02/22/25 10:01 Plt Count 236 10^3/cmm (157-399) 02/22/25 10:01 MPV 9.2 fL (7.4-10.4) 02/22/25 10:01 Neut % (Auto) 45.4 % 02/22/25 10:01 Lymph % (Auto) 43.8 % 02/22/25 10:01 [place] % (Auto) 7.8 % 02/22/25 10:01 Eos % (Auto) 2.1 % 02/22/25 10:01 Baso % (Auto) 0.7 % 02/22/25 10:01 Neut # (Auto) 1.93 10^3/uL (1.8-7.7) 02/22/25 10:01 Lymph # (Auto) 1.9 10^3/uL (0.8-4.8) 02/22/25 10:01 [place] # (Auto) 0.3 10^3/uL (0.2-0.9) 02/22/25 10:01 Eos # (Auto) 0.1 10^3/uL (0.0-0.8) 02/22/25 10:01 Baso # (Auto) 0.0 10^3/uL (0.0-0.1) 02/22/25 10:01 Nucleated RBC % (auto) 0 % 02/22/25 10:01 Nucleated RBCs # 0.0 /100WBC 02/22/25 10:01 Sodium 142 mmol/L (136-145) 02/22/25 10:01 Potassium 4.0 mmol/L (3.5-5.1) 02/22/25 10:01 Chloride 107 mmol/L (98-107) 02/22/25 10:01 Carbon Dioxide 22 mmol/L (22-29) 02/22/25 10:01 Anion Gap 17.0 (5-19) 02/22/25 10:01 BUN 9 mg/dL (6-20) 02/22/25 10:01 Creatinine 0.6 mg/dL (0.5-0.9) 02/22/25 10:01 GFR Calculation 105.0 mL/min (90-130) 02/22/25 10:01 Glucose 104 mg/dL (65-115) 02/22/25 10:01 Calculated Osmolality 293 mOsm/kg (285-295) 02/22/25 10:01 Calcium 9.1 mg/dL (8.5-10.5) 02/22/25 10:01 Total Bilirubin 0.2 mg/dL (0.15-1.2) 02/22/25 10:01 AST 14 U/L (0-32) 02/22/25 10:01 ALT 11 U/L (0-33) 02/22/25 10:01 Alkaline Phosphatase 74 U/L (35-105) 02/22/25 10:01 Troponin T Baseline < 6 ng/L (0-10) 02/22/25 10:01 Troponin T 120 Minute < 6.0 ng/L (0-10) 02/22/25 11:44 Delta Troponin T 0 ABS# (0-10) 02/22/25 11:44 Total Protein 6.3 g/dL (6.6-8.7) L 02/22/25 10:01 Albumin 4.4 g/dL (3.5-5.2) 02/22/25 10:01 Globulin 1.9 g/dL (1.3-4.6) 02/22/25 10:01 Lipase 52 U/L (13-60) 02/22/25 10:01 All radiology interpretation(s) finalized by discharge EKG Data EKG 1: I personally reviewed and interpreted this EKG as follows: EKG interpretation date: 02/22/25 EKG interpretation time: 09:37 Interpretation: nsr hr [address] elevation does have st depression unchanged from previous ekg 02/07/24 qrs 90 qtc 413 EKG 2: I personally reviewed and interpreted this EKG as follows: EKG interpretation date: 02/22/25 EKG interpretation time: 11:34 Interpretation: nsr hr 74 no or t wave abnormalities qrs 81 qtc 432 Clincial Decision Support The following clinical decision support tools were used to aid in care of the patient HEART Score -> History: Slightly Suspicous, EKG: Normal, Age: 45-64 yrs, Risk Factors: 1 or 2 Risk Factors, Troponin: Baseline Trop <16 ng/L. Resulting HEART Score: 2. 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
[2025-02-22 10:09] LABS: Hematocrit 38.2 % (36-47); Hemoglobin 12.60 g/dL (11.27-16.99); Mean Corpuscular HGB Conc 33.0 g/dL (30-55); Mean Corpuscular Hemoglobin 30.3 pg (27-33); Mean Corpuscular Volume 91.8 fl (85-98); Nucleated Red Blood Cells % 0 %; Platelet Count 236 10^3/cmm (157-399); Red Blood Count 4.16 10^6/uL (3.85-5.65); White Blood Count 4.25 10^3/uL (3.29-11.43)
[2025-02-22 10:27] LABS: Troponin(5th) Baseline < 6 ng/L (0-10)
[2025-02-22 10:29] LABS: Alanine Aminotransferase 11 U/L (0-33); Albumin Level 4.4 g/dL (3.5-5.2); Alkaline Phosphatase 74 U/L (35-105); Anion Gap 17.0 (5-19); Aspartate Amino Transferase 14 U/L (0-32); Blood Urea Nitrogen 9 mg/dL (6-20); Calcium 9.1 mg/dL (8.5-10.5); Carbon Dioxide 22 mmol/L (22-29); Chloride 107 mmol/L (98-107); Creatinine Clr Calc Pharmacy 95.3444; Globulin 1.9 g/dL (1.3-4.6); Glucose 104 mg/dL (65-115); Lipase 52 U/L (13-60); Osmolality Calculated 293 mOsm/kg (285-295); Potassium 4.0 mmol/L (3.5-5.1); Sodium 142 mmol/L (136-145); Total Protein 6.3 g/dL (6.6-8.7)
[2025-02-22 11:34] VITALS: BP 144/83; PULSE 67; RESP 19; O2SAT 99
--- NOTE | 2025-02-22 11:34 | ECG_ITS ---
[facility] Test Date: 2025-02-22 Pat Name: Belkis Oconnell Department: Room: Gender: Female Medical Records Supervisor: : 1970 Requested By: Nannette Wiley Order Number: [id number] Ever MD: Sabrina Savage M.D. Measurements Intervals [place] Rate: 74 P: 76 NE: 140 QRS: 84 QRSD: 81 T: 72 QT: 405 QTc: 451 Interpretive Statements SINUS RHYTHM POSSIBLE LEFT ATRIAL ENLARGEMENT [-0.1mV P-WAVE IN V1/V2] Compared to ECG 02/22/2025 09:37:12 ST (T wave) deviation no longer present Electronically Signed On 02-22-2025 17:47:40 CDT by Sabrina Savage M.D. [id number]
[2025-02-22 12:25] LABS: Troponin 5 2HR < 6.0 ng/L (0-10); Troponin 5 2HR Delta 0 ABS# (0-10)
[2025-02-22 12:47] VITALS: BP 139/88; PULSE 56; RESP 17; O2SAT 100
== END 2025-02-22 12:48 | disposition home or self-care (01) ==
PROVIDERS: Emergency Provider Emergency Medicine
DX: R07.9 Chest pain, unspecified (principal); F17.210 Nicotine dependence, cigarettes, uncomplicated
CPT/HCPCS: 36415; 71045; 80053; 83690; 84484; 85025; 93005; 99285

== ENCOUNTER → 2025-02-24 10:11 | Outpatient (BNVA) | payer BC, SELFPAY | DX: Z01.89 Encounter for other specified special examinations (principal); R53.83 Other fatigue | CPT/HCPCS: 84443 ==

== ENCOUNTER 2025-03-06 12:32 | Outpatient (CLI) | payer BC, SELFPAY ==
--- NOTE | 2025-03-06 12:26 | ECG_ITS ---
[facility] Test Date: 2025-03-06 Pat Name: Belkis Oconnell Department: Room: Gender: Female Postpartum Rn: : 1970 Requested By: Giovana Hayward Order Number: [id number] Curtis MD: Sabrina Savage M.D. Interpretive Statements Lung unchanged pre/post procedure; Intraprocedure shortess of breath; Symptoms resoled by discharge Patient became near syncopal with leg weakness requiring sudden stop to stress test. PROCEDURE: At the baseline, the patient's blood pressure was 122/80 with a heart rate of 108. The baseline electrocardiogram showed normal sinus rhythm with half to [address] depressions in lead II, 3, aVF, V5-V6. Possible left atrial enlargement. The patient exercised for 2 minutes and 45 seconds on a standard [place] protocol. Patient attained a maximum heart rate of 151 beats per minute(89% of the maximum predicted heart rate) with a blood pressure at the peak exercise of 161/93 mm Hg. The EKG at the peak exercise revealed nonspecific changes.. Patient did not have any chest pain or any significant cardiac arrhythmias with the exercise. But the patient started complaining of lightheadedness/dizziness and left leg fatigue. Almost had a near syncopal episode. For this reason, the test had to be terminated. During the recovery phase, there were no new changes. Blood pressure at the end of the recovery phase was 106/75 mm Hg with a heart rate of 100 per minute. CONCLUSION: 1. Nonspecific EKG response to treadmill exercise 2. No exercise-induced chest pain or cardiac arrhythmia 3. Impaired exercise tolerance, attained a maximum of 4 point METs 4. Patient had a near syncopal spell with the peak exercise Electronically Signed On 03-08-2025 20:40:23 CDT by Sabrina Savage M.D. [email or web address] [id number]
[2025-03-06 13:08] VITALS: BMI 18.8
[2025-03-06 13:10] VITALS: BP 104/81; PULSE 100
== END 2025-03-06 12:33 | disposition home or self-care (01) ==
LOC: CDL 12:36
PROVIDERS: Visit Provider Pediatrics
DX: R07.9 Chest pain, unspecified (principal); I49.8 Other specified cardiac arrhythmias; R94.31 Abnormal electrocardiogram [ECG] [EKG]; R42 Dizziness and giddiness
CPT/HCPCS: 93017

== ENCOUNTER → 2025-05-14 09:01 | Outpatient (BNVA) | payer BC, SELFPAY | DX: M19.041 Primary osteoarthritis, right hand (principal); M19.042 Primary osteoarthritis, left hand | CPT/HCPCS: 80053; 85025; 85651; 86160; 86162; 86235; 86255; 86376; 86431 ==

== ENCOUNTER 2025-05-15 11:34 | Outpatient (CLI) | payer BC, SELFPAY ==
--- NOTE | 2025-05-15 11:40 | XR_ITS ---
WS: [id number] XR hand RT min 3V* [id number] REASON FOR EXAM: decreased ROM FINDINGS: No fracture or focal bone lesion. No bone erosion or periosteal reaction. Minimal narrowing of the joint space with minimal subchondral sclerosis in the 3 joints of the thumb. The remainder of the joint spaces in the hand are intact and well preserved. Persistent flexion at the fifth PIP joint. XR/XR hand RT min 3V* [id number] IMPRESSION: Persistent flexion of the fifth finger. 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 No other significant bone or joint abnormality.
--- NOTE | 2025-05-15 11:40 | XR_ITS ---
WS: [id number] XR hand LT min 3V* [id number] REASON FOR EXAM: decreased ROM FINDINGS: No fracture or focal bone lesion. No erosion or periosteal reaction. Minimal to mild narrowing of the joint space with minimal subchondral sclerosis in the 3 joints of the thumb. The remaining joint spaces of the left hand are intact and well preserved. Persistent flexion at the PIP joint of the fifth finger. XR/XR hand LT min 3V* [id number] IMPRESSION: Persistent flexion of the fifth finger. 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 No other bone or joint abnormality.
== END 2025-05-15 11:35 | disposition home or self-care (01) ==
DX: M19.041 Primary osteoarthritis, right hand (principal); M19.042 Primary osteoarthritis, left hand
CPT/HCPCS: 73130

== ENCOUNTER 2025-06-01 08:50 | Outpatient (RCR) | payer BC, SELFPAY | END 2025-06-03 23:59 | disposition home or self-care (01) | LOC: SOT 08:50 | DX: M19.041 Primary osteoarthritis, right hand (principal); M19.042 Primary osteoarthritis, left hand | CPT/HCPCS: 97110; 97167; 97530; L3809 ==

== ENCOUNTER 2025-06-03 05:54 | Outpatient (CLI) | payer BC, SELFPAY ==
[2025-06-03] VITALS (12 sets, daily range): BP systolic 106–146; BP diastolic 60–103; PULSE 57–80; RESP 16–20; TEMP 36.8; O2SAT 95–99
--- NOTE | 2025-06-03 06:00 | XACV_ITS ---
Ht: 165 cm Wt: 54 kg BSA: 1.58 m2 Gender: Female : 1970 Any Known Allergies: No known allergies Exam Priority: Routine Indication(s): - Chest pain - Abnormal nuclear perfusion study Procedure(s): Procedure Description: Diagnostic procedure Procedure Description: Coronary IVUS Procedure Description: Miscellaneous Procedure Description: ACT Procedure Description: Coronary Angiography Rachel SCHUMACHER; Diagnostic Cath Status: Elective Diagnostic Findings * Left Main has no disease. * Right Coronary Artery has no disease. * Distal Left Anterior Descending: moderate 50% stenosis, [place]: 3 flow. * Proximal Circumflex: obstructive 60% stenosis, [place]: 3 flow. * Coronary angiography shows right dominance. PCI Status: Elective Conclusions 1. There is obstructive coronary artery disease with two vessel disease. 2. IVUS was performed of the proximal circumflex eccentric lesion as it appeared in some angle to be significant while another it appeared to me that it may have myocardial bridge. MLA was recorded at 4.8 mm2 which is not significant. Recommendations * Continue current medical management and risk factor modification. Diagnostic RX Recommendation: medical therapy and/or counseling Pressures Phase:Rest AO : 114 / 71 ( 88 ) @ 8:59:00 AM Clinical Evaluation EBL: 5mL-10mL Procedural Details Procedure Consent Obtained. Admit Source: Out Patient. Current Diagnosis : Chest Pain. Pre-Procedure Time Out. Identified patient by full name and date of as verbalized by the patient/guarantor. Does the consent match the physician's order: Yes. Accurate & Complete Informed Consent: Yes. Inpatient/Outpatient History & Physical on Chart: Yes. If H&P is completed, is and addenduem needed: No; If yes, is the addendum complete: N/A. Visualize and Verify Site with Patient/Guarantor: N/A. Relevant Radiology Images available: N/A. The risks, benefits, and alternatives of sedation and/or procedure were discussed by physician. The patient agrees to continue. Procedure started. [facility] Clinical Fraility Score: 3: Managing Well. Care Worker Indications: Other. Chest Pain Symptom Assessment: Typical Angina Symptoms. Cardiovascular Instability: No. Correct patient, site and procedure confirmed by cath team. Current diagnosis: Chest Pain; Abnormal Stress Test. PERRLA. Strong, equal hand foxer bilaterally. Lungs clear x 5 lobes. IV Site on Arrival: 20 gauge in the left anticubital. IV Fluids: 0.9% NaCl at KVO. 0 mL infused prior to mobile lab technician. Pre Procedural Pulses: bilateral posterior tibial was 1+. Pre Procedural Pulses: bilateral dorsalis pedis was 3+. Pre Procedural Pulses: bilateral radial was 3+. Oxygen started at 3liters/min via nasal canula. right groin was prepped with chloroprep then draped in the usual sterile fashion. right radial was prepped with chloroprep then draped in the usual sterile fashion. Physician notified. Physician arrived. Physician scrubbed in. Family updated by prior to the start of the procedure. Baseline sample Acquired. HR: 61 BPM. Immediate Pre-Procedure Time Out. Correct Patient: Yes; Correct Procedure: Yes; Correct Site: Yes; Correct Patient Position: Yes; Correct Supplies: Yes; Dried Flammable Prep: Yes; Blood Products Available: N/A;. Lidocaine 1% infiltrated to the right radial. Arterial access obtained. A 5 kyrgyz TIG catheter in over wire. Multiple views taken of left coronary artery. Catheter redirected to the RCA. Multiple views taken of right coronary artery. Catheter removed over the exchange wire. 6 kyr[place]z XB 3 guide catheter was inserted over the wire. ACT drawn. Results 266 seconds. Therapeutic limits - pre-heparin administration 90-150 seconds and monitoring heparin during a vascular procedure >250 seconds. Guide seated in the LCS. BMW wire in and advanced down the circumflex artery. IVUS catheter inserted. IVUS of proximal Circumflex obtained. Proximal Circumflex MLA 5.0 mm squared. IVUS catheter out. Wire out. Guide catheter out over the wire. [id number]. Physician review of films. Physcian scrubbed out. A TR Band was successful obtaining hemostatsis at the Right Radial artery insertion site. TR band placed. Hemostasis obtained. Post-op diagnosis: Non obstuctive circumflex disease. Post Procedure: Pulses reassessed and unchanged. PERRLA. Strong, equal hand foxer bilaterally. No VTE prophylaxis required. Medication's Wasted: Lidocaine 1% = 18 ml , Versed = 1 mg , Nitro = 49.6 mg, Heparin = 1000 units. Total IV fluids: 50 mL. Fluoro: 7:07. Contrast type used: Omnipaque 300 mg/mL, 150 mL bottle. Complications: None. Estimated blood loss: 5mL-10mL. Responsiveness - Normal response to verbal stimuli; alert and oriented, PERRLA. Airway - Unaffected, no intervention required; spontaneous ventilation. Circulation: W/N/L, pulses unchanged. Nausea/Vomiting: No. Procedure completed. Patient transferred by wheelchair to CPRU. Vital chart was stopped. Access Site Site: Right Radial artery Sheath Size: 6 Fr Hemostasis Method: TR Band Hemostasis Success: Successful Procedure Medications Start: 8:45 AM Stop: 8:45 AM Medication: Versed Amount: 1 mg Route: I.V. Start: 8:45 AM Stop: 8:45 AM Medication: Fentanyl Amount: 50 mcg Route: I.V. Start: 8:51 AM Stop: 8:51 AM Medication: Versed Amount: 1 mg Route: I.V. Start: 8:55 AM Stop: 8:55 AM Medication: Versed Amount: 1 mg Route: I.V. Start: 8:57 AM Stop: 8:57 AM Medication: Nitrogylcerin Amount: 200 mcg Route: I.A. Start: 8:59 AM Stop: 8:59 AM Medication: Heparin Amount: 5000 units Route: I.V. Start: 9:13 AM Stop: 9:13 AM Medication: Fentanyl Amount: 25 mcg Route: I.V. Start: 9:16 AM Stop: 9:16 AM Medication: Nitrogylcerin Amount: 200 mcg Route: I.C. Start: 9:26 AM Stop: 9:26 AM Medication: Fentanyl Amount: 25 mcg Route: I.V. I, the attending physician, have reviewed and verified all procedure medications. Yes, all medications given per verbal order History/Risk Factors Hypertension: Yes Dyslipidemia: No Peripheral Arterial Disease (PAD): No Myocardial Infarction (OR): No Obesity: No Renal Disease: No Tobacco Use: Current/Recent(w/in 1 year) Prior Interventions PCI: No CABG: No Valve Surgery: No Report Signatures Finalized by Rashmi Ramos MD on 06/14/2025 08:16 PM
--- NOTE | 2025-06-03 08:34 | W.PM.OPSUD ---
Surgery/Procedure H&P Update DATE OF PROCEDURE: June 03, 2025 DATE H&P PERFORMED: 05/15/25 H&P UPDATE INFORMATION: I have reviewed H&P completed within last 30 days, I have examined patient prior to procedure and No changes to prior documentation PREOP DIAGNOSIS: chest pain , equivocal inconclusive stress test PLANNED PROCEDURE: Operation Date: 06/03/25 07:00 Proposed Procedures p Cardiac Catheterization(Left) - Rashmi Ramos MD PATIENT REASSESSED PRIOR TO SEDATION, WITH NO CHANGE NOTED: Yes PHYSICAL EXAM: alert, oriented x 3, clear to auscultation bilaterally and regular rate & rhythm AIRWAY EVAL/ANESTHESIA PLAN: ASA II, Risks, benefits & alternatives of sedation and/or procedure discussed and Patient agrees to continue as planned ADDITIONAL INFORMATION: All risk benefit and alternative of the procedure has been explained the patient, patient understand 2% risk of , stoke major bleed,patient understand 5% risk of contrast inducednephropathy, minor bleeding hematoma, pseudoaneurysm, urgent emergnent vascular or by pass surgery
--- NOTE | 2025-06-03 09:45 | PC.NURSE ---
Received the patient back from the labor contract analyst via cot s/p Diagnostic [facility]. A & 0 x 3. guidance services coordinator placed and vital signs obtained. TR band intact to the right wrist. No bleeding or hematoma noted. Palpable radial pulse. No other assessment changes noted from pre cath assessment. Family at bedside. No concerns voiced at this time.
--- NOTE | 2025-06-03 10:44 | PC.NURSE ---
Letting the air out of the TR band per protocol. No other changes noted at this time.
--- NOTE | 2025-06-03 11:45 | PC.NURSE ---
TR band off per protocol. Right wrist area cleansed with warm water and patted dry. A large band aid was applied to the site and loosely secured with coban. No bleeding or hematoma noted. Palpable radial pulse. Patient tolerated well. Post Radial activity restrictions explained to the patient and her spouse with their understanding verbalized.
--- NOTE | 2025-06-03 12:41 | PC.NURSE ---
Patient discharged home via wheelchair with spouse and all belongings.
== END 2025-06-03 05:55 | disposition home or self-care (01) ==
PROVIDERS: Visit Provider Internal Medicine Cardiovascular Disease
DX: I25.118 Atherosclerotic heart disease of native coronary artery with other forms of angina pectoris (principal); I10 Essential (primary) hypertension; K21.9 Gastro-esophageal reflux disease without esophagitis; R56.9 Unspecified convulsions; Z82.49 Family history of ischemic heart disease and other diseases of the circulatory system; F17.210 Nicotine dependence, cigarettes, uncomplicated; R00.2 Palpitations
CPT/HCPCS: 36415; 85347; 92978; 93454; 96365; 99152; 99153; C1753; C1769; C1887; C1894; J1644; J2250; J3010; J3490; J7030; J9999; Q0163; Q9967